=== PATIENT | female | born 1955 | race Caucasian/White ===

== ENCOUNTER → 2018-12-25 11:59 | Outpatient (CLI) | payer OTHER, SELFPAY ==
--- NOTE | 2018-12-25 | DI.MG.S_ITS ---
BILATERAL DIGITAL SCREENING MAMMOGRAM 3D/2D WITH CAD: 12/25/2018 CLINICAL: Routine screening. Family history of breast cancer. Comparison is made to exams dated: 11/23/2017 mammogram, 10/03/2016 mammogram - [facility], and 06/22/2015 mammogram - [facility]. There are scattered fibroglandular elements in both breasts. Current study was also evaluated with a Computer Aided Detection (CAD) system. There is a benign biopsy clip in the right breast. No significant masses, calcifications, or other findings are seen in either breast. There has been no significant interval change. IMPRESSION: NEGATIVE There is no mammographic evidence of malignancy. A 1 year screening mammogram is recommended. This exam was interpreted at Station ID: [id number]. NOTE: For mammograms, a report in lay terms will be sent to the patient. Approximately 15% of breast malignancies will not be visualized mammographically. In the management of a palpable breast mass, a negative mammogram must not discourage biopsy of a clinically suspicious lesion. Electronically Signed By: Lauro [email or web address]/yolande:12/25/2018 18:25:23 letter sent: Normal Exam ACR BI-RADS Category 1: Negative 3341F
== END ==
PROVIDERS: PCP Internal Medicine; Visit Provider Internal Medicine
DX: Z12.31 Encounter for screening mammogram for malignant neoplasm of breast (principal); Z80.3 Family history of malignant neoplasm of breast
CPT/HCPCS: 77063; 77067

== ENCOUNTER → 2020-03-18 16:35 | Outpatient (CLI) | payer MEDICARE, SELFPAY ==
--- NOTE | 2020-03-18 | DI.MG.S_ITS ---
BILATERAL DIGITAL SCREENING MAMMOGRAM 3D/2D WITH CAD: 03/18/2020 CLINICAL: Routine screening. Family history of breast cancer. Comparison is made to exams dated: 12/25/2018 mammogram, 11/23/2017 mammogram, and 10/03/2016 mammogram - [facility]. There are scattered fibroglandular elements in both breasts. Current study was also evaluated with a Computer Aided Detection (CAD) system. There is a biopsy clip in the right breast. No significant masses, calcifications, or other findings are seen in either breast. There has been no significant interval change. IMPRESSION: NEGATIVE There is no mammographic evidence of malignancy. A 1 year screening mammogram is recommended. This exam was interpreted at Station ID: [id number]. NOTE: For mammograms, a report in lay terms will be sent to the patient. Approximately 15% of breast malignancies will not be visualized mammographically. In the management of a palpable breast mass, a negative mammogram must not discourage biopsy of a clinically suspicious lesion. Electronically Signed By: Jordy randall/yolande:03/18/2020 17:43:15 letter sent: Normal Exam ACR BI-RADS Category 1: Negative 3341F
== END ==
PROVIDERS: PCP Internal Medicine; Referring Provider Internal Medicine; Visit Provider Internal Medicine
DX: Z12.31 Encounter for screening mammogram for malignant neoplasm of breast (principal); Z80.3 Family history of malignant neoplasm of breast
CPT/HCPCS: 77063; 77067

== ENCOUNTER 2021-06-21 16:27 | Inpatient (IN) | payer MEDICARE, BC, SELFPAY ==
[2021-06-21] VITALS (18 sets, daily range): BP systolic 93–133; BP diastolic 56–74; PULSE 57–86; RESP 14–24; TEMP 36.6–37.2; O2SAT 97–100; BMI 18.8
--- NOTE | 2021-06-21 16:43 | DI.RAD.S_ITS ---
PROCEDURE: XR CHEST 2V INDICATIONS: shortness of breath TECHNIQUE: 2 views of the chest were acquired. COMPARISON: None. FINDINGS: Surgical changes and devices: None. Lungs and pleura: Lungs are clear. No pleural effusions or pneumothorax. Mediastinum: Mediastinal contours are normal. Heart size is normal. Bones and chest wall: No suspicious bony abnormalities. Soft tissues appear unremarkable. IMPRESSION: No acute cardiopulmonary disease process. Dictated by: Sybil Gallo MD, PhD on 06/21/2021 at 16:07 Approved by: Sybil Gallo MD, PhD on 06/21/2021 at 16:07
[2021-06-21 17:01] LABS: Alanine Aminotransferase 27 IU/L (<35); Albumin 4.8 g/dL (3.5-5.0); Albumin Globulin Ratio 1.7 (1.0-2.8); Alkaline Phosphatase 44 U/L (38-126); Aspartate Aminotransferase 43 IU/L (14-36); BUN Creatinine Ratio 25.5 (6-22); Bilirubin Total 0.8 mg/dL (0.2-1.3); Blood Urea Nitrogen 14 mg/dL (7-17); Calcium 9.8 mg/dL (8.4-10.2); Carbon Dioxide 25 mmol/L (22-32); Chloride 102 mmol/L (98-107); Estimated Glomerular Filt Rate > 60.0 mL/min (>60); Globulin 2.8 g/dL (1.7-4.1); Glucose 107 mg/dL (80-110); Lactate (Lactic Acid) 0.9 mmol/L (0.7-2.1); Sodium 135 mmol/L (137-145); Total Protein 7.6 g/dL (6.3-8.2)
[2021-06-21 17:10] LABS: NT-proBNP (BNP-Adult 18+) 2380 pg/mL (<125)
[2021-06-21 17:14] LABS: Add Manual Diff / Slide Review NO; Basophils Absolute Auto 100 /uL (0-100); Basophils Percent Auto 0.9 % (0-2); Eosinophils Absolute Auto 300 /uL (0-450); Eosinophils Percent Auto 4.4 % (2-4); Hematocrit 38.6 % (36-46); Lymphocytes Absolute Auto 1600 /uL (1100-4500); Mean Corpuscular HGB Conc 33.8 % (30-36); Mean Corpuscular Hemoglobin 31.5 PG (26-34); Mean Corpuscular Volume 93.2 fL (80-100); Monocytes Absolute Auto 600 /uL (0-900); Monocytes Percent Auto 8.7 % (3-14); Neutrophils Absolute Auto 4100 /uL (1500-7000); Platelet Count 258 X10^3/uL (150-400); Red Blood Cell Count 4.14 X10^6/uL (4.0-5.2); Red Cell Distribution Width 13.4 % (11.6-14.8); White Blood Cell Count 6.6 X10^3/uL (4.5-11.0)
[2021-06-21 17:19] LABS: HEMOLYSIS 114 (0-50)
[2021-06-21 17:20] LABS: Potassium 4.1 mmol/L (3.4-5.1)
[2021-06-21 17:24] LABS: COVID19 -Nasal RAPID Negative (Negative)
[2021-06-21 18:45] LABS: D Dimer < 200 ng/mL (<230)
[2021-06-21] MEDS: ASPIRIN 325 MG TABLET PO (18:45)
--- NOTE | 2021-06-21 18:46 | ED.SOB ---
HPI - SOB/Dyspnea <Temo Kurtz PA-C - Last Filed: 06/21/21 20:26> General Chief Complaint: Shortness of Breath/Dyspnea Stated Complaint: shortness of breath Time Seen by Provider: 06/21/21 16:47 Source: patient Mode of arrival: Ambulatory Limitations: no limitations History of Present Illness HPI Narrative: 66-year-old female with no reported past medical history presents to the ED with worsening shortness of breath for the last 4 days. Patient states that she has been feeling progressively short of breath for the last 2 years, has lost about 20 lb unintentionally over the last 2 years. Patient states that 4 days ago, she was dancing with her friend, after which she felt extremely short of breath, had more intermittent episodes of shortness of breath over the last 3 days. Patient also endorses nausea and shaky limbs. Patient denies fevers, chills, chest pain, cough, vomiting, abdominal pain, dysuria, lightheadedness, dizziness, syncope. Patient denies any leg swelling, prior history of DVTs or PE. Patient is a current smoker. Related Data Home Medications Medication Instructions Recorded Confirmed duloxetine 60 mg capsule,delayed 60 mg PO DAILY 06/21/21 06/21/21 release (Cymbalta) Allergies Allergy/AdvReac Type Severity Reaction Status Date / Time No Known Drug Allergies Allergy Verified 06/21/21 16:43 Review of Systems <Temo Kurtz PA-C - Last Filed: 06/21/21 20:26> Constitutional Constitutional: Denies chills, Reports fatigue, Denies fever(s), Denies frequent falls, Denies lethargy, Reports malaise and Denies weakness Eyes Eyes: Denies change in vision, Denies eye discharge, Denies irritation and Denies loss of vision ENT Ears, Nose, Mouth, and Throat: Denies change in voice, Denies dizziness, Denies neck pain, Denies sore throat and Denies throat swelling Cardiovascular Cardiovascular: Denies chest pain, Denies irregular heart rhythm, Denies lightheadedness, Denies palpitations, Reports dyspnea, Reports dyspnea on exertion and Denies orthopnea Respiratory Respiratory: Denies cough, Reports dyspnea, Reports dyspnea on exertion and Denies wheezing Gastrointestinal Gastrointestinal: Denies abdominal pain, Denies change in bowel habits, Denies diarrhea, Reports nausea and Denies vomiting Musculoskeletal Musculoskeletal: Denies neck pain and Denies numbness Integumentary/Breasts Skin/Breast: Denies pruritus, Denies erythema, Denies rash and Denies wounds Neurologic Neurologic: Denies behavioral changes, Denies confusion, Denies dizziness, Denies frequent falls, Denies loss of vision, Denies numbness and Denies weakness Psychiatric Psychiatric: Denies anxiety, Denies behavioral changes, Denies confusion, Denies depression, Denies homicidal ideation and Denies suicidal ideation Endocrine Endocrine: Reports fatigue, Denies flushing and Denies palpitations Hematologic/Lymphatic Hematologic/Lymphatic: Denies easy bruising Allergic/Immunologic Allergic/Immunologic: Denies urticaria, Denies throat swelling and Denies wheezing Patient History <Temo Kurtz PA-C - Last Filed: 06/21/21 20:26> Social History Smoking Status: Current some day smoker Smoking Status: Current some day smoker alcohol intake frequency: 0-2 drinks per day Substance Use Type: does not use Exam <Temo Kurtz PA-C - Last Filed: 06/21/21 20:26> Initial Vital Signs Initial Vital Signs: Vital Signs Temperature 99 F 06/21/21 16:38 Pulse Rate 84 06/21/21 16:38 Respiratory Rate 21 06/21/21 16:38 Blood Pressure 133/71 06/21/21 16:38 Pulse Oximetry 100 06/21/21 16:38 Const General: cooperative HENMT Head: normocephalic and atraumatic Ears: external ears normal and TM's normal bilaterally Nose: external nose normal and No nasal discharge Face and sinus: sinuses nontender, face symmetric, no sinus tenderness and No dry mucous membranes Mouth: oral mucosae normal and moist mucous membranes Teeth and gingiva: dentition normal Throat: tonsils normal and uvula midline Eyes General: appearance normal, both eyes and all related structures Eyelids: eyelids normal Conjunctivae: conjunctivae normal Sclera: sclerae normal Pupils: PERRL EOM: EOM intact bilaterally Neck Neck: normal visual inspection, trachea midline, No lymphadenopathy, No midline deformity and No JVD Lymphatic: No lymphedema Chest Chest: normal inspection of the chest Resp Effort & Inspection: normal respiratory effort, able to speak in complete sentences, no respiratory distress and no use of accessory muscles Auscultation: clear to auscultation bilaterally, no rales, no rhonchi and no wheezes Cardio Rate: regular rate Rhythm: regular rhythm Heart Sounds: no click, no gallops, no murmurs and no rubs Pulses: normal peripheral pulses GI Inspection: non-distended Palpation: soft, no hepatosplenomegaly, No guarding, No pulsatile mass and No tender Auscultation: normal bowel sounds Back/Spine/Pelvis Back: No CVA tenderness Cervical Spine: cervical ROM normal and No pain with cervical ROM Thoracic/Lumbar Spine: thoracic and lumbar spine normal to inspection Skin General: no rashes or lesions noted, No jaundice and No petechiae Neuro General: patient alert, patient oriented x3, gait normal and no focal motor deficits Speech: speech normal Extrem General: full ROM, no clubbing, cyanosis or edema, no pedal edema and no calf tenderness Other: No leg swelling, erythema, tenderness to palpation Psych Appearance: well kempt Mental Status: mental status grossly normal Attitude: cooperative Thought Content: normal and suicidality Judgment: judgment good <Keli Cardoso MD - Last Filed: 06/21/21 22:42> Initial Vital Signs Initial Vital Signs: Vital Signs Temperature 99 F 06/21/21 16:38 Pulse Rate 84 06/21/21 16:38 Respiratory Rate 21 06/21/21 16:38 Blood Pressure 133/71 06/21/21 16:38 Pulse Oximetry 100 06/21/21 16:38 Course <Temo Kurtz PA-C - Last Filed: 06/21/21 20:26> Course Course Narrative: EKG with acute changes. Troponin of 0.690, BNP 2380. Labs otherwise unremarkable. Cardiology consult with Dr. Davis, she recommends aspirin 325, heparin drip, metoprolol 25 mg, transfer to a facility for a cardiac catheterization. Patient given aspirin 325, metoprolol 25 mg, heparin drip, Lasix 40 mg IV. Repeat EKG unchanged. Repeat troponin 0.630. Patient is awaiting acceptance to a facility with cardiac catheterization lab. Patient is currently wait listed at [facility]. [facility] transfer center called to obtain patient information, and notified that their Cardiology Department will call us back, ETA unknown. Orders Ordered: ED Orders 06/21/21 16:37 Complete Blood Count AUTO DIFF Stat Comprehensive Metabolic Panel Stat Lactate (Lactic Acid) Stat NT-proBNP (BNP-Adult 18+) Stat Troponin I Stat 06/21/21 16:43 XR chest 2V Stat EKG-12 Lead Stat Measure peak expiratory flow ONCE RT Consult Eval and Treat Now 06/21/21 16:45 COVID19 -Nasal swab/Pre-Proc Stat 06/21/21 18:22 D Dimer Stat PTT [Partial Thromboplastin Time] Stat Thyroid Stimulating Hormone Stat 06/21/21 19:30 Troponin I Stat 06/21/21 19:31 EKG-12 Lead Stat 06/22/21 02:00 PTT [Partial Thromboplastin Time] Stat Heparin Sodium/Dextrose (Heparin Drip) 25,000 unit in 500 mls @ 10.886 mls/hr IV CONT ANDREW; Protocol Last Admin: 06/21/21 19:46 Dose: 11.91 units/kg/hr, 10.8 mls/hr Documented by: MARVIN Discontinued Medications Aspirin (Aspirin 325 Mg Tablet) 325 mg PO NOW ONE Stop: 06/21/21 18:37 Last Admin: 06/21/21 18:45 Dose: 325 mg Documented by: FRENCH Furosemide (Furosemide 40 Mg/4 Ml Vial) 40 mg IV NOW ONE Stop: 06/21/21 19:24 Last Admin: 06/21/21 19:46 Dose: 40 mg Documented by: MARVIN Heparin Sodium (Porcine) (Heparin 5,000 Unit/Ml Vial) 5,000 unit IV NOW ONE Stop: 06/21/21 19:24 Last Admin: 06/21/21 19:36 Dose: Not Given Documented by: MARVIN Heparin Sodium (Porcine) (Heparin 5,000 Unit/Ml Vial) 4,000 unit IV NOW ONE Stop: 06/21/21 19:35 Last Admin: 06/21/21 19:46 Dose: 4,000 unit Documented by: MARVIN Heparin Sodium/Dextrose (Heparin Drip) 25,000 unit in 500 mls @ 20 mls/hr IV CONT ANDREW; Protocol Last Admin: 06/21/21 19:36 Dose: Not Given Documented by: MARVIN Metoprolol Succinate (Metoprolol Er 25 Mg Tablet) 25 mg PO NOW ONE Stop: 06/21/21 19:50 Last Admin: 06/21/21 20:36 Dose: 25 mg Documented by: MARVIN Vital Signs Vital signs: Vital Signs - 8 hr 06/21/21 16:38 06/21/21 17:00 06/21/21 17:30 Temperature 99 F Pulse Rate 86 79 79 Respiratory Rate 18 23 Blood Pressure 133/71 Pulse Oximetry 100 99 100 06/21/21 18:00 06/21/21 19:10 06/21/21 19:30 Temperature Pulse Rate 82 73 70 Respiratory Rate 24 Blood Pressure 112/68 121/65 Pulse Oximetry 100 99 100 06/21/21 20:00 06/21/21 20:15 06/21/21 20:30 Temperature Pulse Rate 69 72 70 Respiratory Rate Blood Pressure 111/62 130/74 117/69 Pulse Oximetry 100 100 100 06/21/21 20:36 06/21/21 20:42 06/21/21 21:00 Temperature Pulse Rate 72 70 66 Respiratory Rate 14 21 Blood Pressure 130/74 130/63 107/66 Pulse Oximetry 99 06/21/21 21:25 06/21/21 21:30 Temperature Pulse Rate 69 67 Respiratory Rate 22 Blood Pressure 118/69 120/66 Pulse Oximetry 97 <Keli Cardoso MD - Last Filed: 06/21/21 22:42> Course Course Narrative: EKG with acute changes. Troponin of 0.690, BNP 2380. Labs otherwise unremarkable. Cardiology consult with Dr. Davis, she recommends aspirin 325, heparin drip, metoprolol 25 mg, transfer to a facility for a cardiac catheterization. Patient given aspirin 325, metoprolol 25 mg, heparin drip, Lasix 40 mg IV. Repeat EKG unchanged. Repeat troponin 0.630. Patient is awaiting acceptance to a facility with cardiac catheterization lab. Patient is currently wait listed at [facility]. [facility] transfer center called to obtain patient information, and notified that their Cardiology Department will call us back, ETA unknown. 830pm spoke with delineator at the [facility], Dr [address]. Excepted patient information however beds are not available. Review bed status with a local hospitals, [facility], [facility]and [facility] are all so full they won't even place her on a wait list. Extensive wait list at [facility] in [place] (maybe tomorrow afternoon) and [facility] in [place] (tomorrow am may be possible after discharges), [facility] (nothing tonight, ED boarding, can call tomorrow, but doubtful) Will contact [facility] Patient is examined independently, chart is reviewed. Care is assumed. She is informed of bed search that continues and is currently stable in the emergency department. Given extensive timeline for transfer, will consider admission here for contiued care until beds are available. 915: no capaicty at [facility] may have capacity. Dr Gerard, hospitalist from [facility], no bed capacity tonight. 10:30 pm care is reviewed with the hospitalist service. Will be admitted overnight for continue heparin drip, serial enzymes, echocardiogram in the morning with anticipation of discharge when bed available with likely need for heart catheterization setting of new congestive heart failure and non STEMI. Orders Ordered: ED Orders 06/21/21 16:37 Complete Blood Count AUTO DIFF Stat Comprehensive Metabolic Panel Stat Lactate (Lactic Acid) Stat NT-proBNP (BNP-Adult 18+) Stat Troponin I Stat 06/21/21 16:43 XR chest 2V Stat EKG-12 Lead Stat Measure peak expiratory flow ONCE RT Consult Eval and Treat Now 06/21/21 16:45 COVID19 -Nasal swab/Pre-Proc Stat 06/21/21 18:22 D Dimer Stat PTT [Partial Thromboplastin Time] Stat Thyroid Stimulating Hormone Stat 06/21/21 19:30 Troponin I Stat 06/21/21 19:31 EKG-12 Lead Stat 06/22/21 02:00 PTT [Partial Thromboplastin Time] Stat Heparin Sodium/Dextrose (Heparin Drip) 25,000 unit in 500 mls @ 10.886 mls/hr IV CONT ANDREW; Protocol Last Admin: 06/21/21 19:46 Dose: 11.91 units/kg/hr, 10.8 mls/hr Documented by: MARVIN Discontinued Medications Aspirin (Aspirin 325 Mg Tablet) 325 mg PO NOW ONE Stop: 06/21/21 18:37 Last Admin: 06/21/21 18:45 Dose: 325 mg Documented by: NOEMYOTEM Furosemide (Furosemide 40 Mg/4 Ml Vial) 40 mg IV NOW ONE Stop: 06/21/21 19:24 Last Admin: 06/21/21 19:46 Dose: 40 mg Documented by: MARVIN Heparin Sodium (Porcine) (Heparin 5,000 Unit/Ml Vial) 5,000 unit IV NOW ONE Stop: 06/21/21 19:24 Last Admin: 06/21/21 19:36 Dose: Not Given Documented by: MARVIN Heparin Sodium (Porcine) (Heparin 5,000 Unit/Ml Vial) 4,000 unit IV NOW ONE Stop: 06/21/21 19:35 Last Admin: 06/21/21 19:46 Dose: 4,000 unit Documented by: MARVIN Heparin Sodium/Dextrose (Heparin Drip) 25,000 unit in 500 mls @ 20 mls/hr IV CONT ANDREW; Protocol Last Admin: 06/21/21 19:36 Dose: Not Given Documented by: MARVIN Metoprolol Succinate (Metoprolol Er 25 Mg Tablet) 25 mg PO NOW ONE Stop: 06/21/21 19:50 Last Admin: 06/21/21 20:36 Dose: 25 mg Documented by: MARVIN Vital Signs Vital signs: Vital Signs - 8 hr 06/21/21 16:38 06/21/21 17:00 06/21/21 17:30 Temperature 99 F Pulse Rate 86 79 79 Respiratory Rate 18 23 Blood Pressure 133/71 Pulse Oximetry 100 99 100 06/21/21 18:00 06/21/21 19:10 06/21/21 19:30 Temperature Pulse Rate 82 73 70 Respiratory Rate 24 Blood Pressure 112/68 121/65 Pulse Oximetry 100 99 100 06/21/21 20:00 06/21/21 20:15 06/21/21 20:30 Temperature Pulse Rate 69 72 70 Respiratory Rate Blood Pressure 111/62 130/74 117/69 Pulse Oximetry 100 100 100 06/21/21 20:36 06/21/21 20:42 06/21/21 21:00 Temperature Pulse Rate 72 70 66 Respiratory Rate 14 21 Blood Pressure 130/74 130/63 107/66 Pulse Oximetry 99 06/21/21 21:25 06/21/21 21:30 Temperature Pulse Rate 69 67 Respiratory Rate 22 Blood Pressure 118/69 120/66 Pulse Oximetry 97 MDM - SOB/Dyspnea <Temo Kurtz PA-C - Last Filed: 06/21/21 20:26> Medical Records Attestation: I reviewed the patient's medical records. Lab Data Attestation: I reviewed the patient's lab results. Lab results narrative: Elevated tropes 0.690. Elevated NT pro BNP 2380 Result diagrams: 06/21/21 16:37 06/21/21 16:37 Labs: Lab Results 06/21/21 06/21/21 06/21/21 Range/Units 16:37 16:37 16:37 WBC 6.6 (4.5-11.0) X10^3/uL RBC 4.14 (4.0-5.2) X10^6/uL Hgb 13.0 (12.0-16.0) g/dL Hct 38.6 (36-46) % MCV 93.2 (80-100) fL MCH 31.5 (26-34) PG MCHC 33.8 (30-36) % RDW 13.4 (11.6-14.8) % Plt Count 258 (150-400) X10^3/uL Neut % (Auto) 62.0 (50-75) % Lymph % (Auto) 24.0 L (25-40) % Stephenson % (Auto) 8.7 (3-14) % Eos % (Auto) 4.4 H (2-4) % Baso % (Auto) 0.9 (0-2) % Neut # (Auto) 4100 (4172-7846) /uL Lymph # (Auto) 1600 (7507-4056) /uL Stephenson # (Auto) 600 (0-900) /uL Eos # (Auto) 300 (0-450) /uL Baso # (Auto) 100 (0-100) /uL APTT (26.4-36.2) SECONDS D-Dimer (<230) ng/mL Sodium 135 L (137-145) mmol/L Potassium 4.1 (3.4-5.1) mmol/L Chloride 102 (98-107) mmol/L Carbon Dioxide 25 (22-32) mmol/L BUN 14 (7-17) mg/dL Creatinine 0.55 (0.52-1.04) mg/dL Estimated GFR > 60.0 (>60) mL/min BUN/Creatinine Ratio 25.5 H (6-22) Glucose 107 (80-110) mg/dL Lactate 0.9 (0.7-2.1) mmol/L Calcium 9.8 (8.4-10.2) mg/dL Total Bilirubin 0.8 (0.2-1.3) mg/dL AST 43 H (14-36) IU/L ALT 27 (<35) IU/L Alkaline Phosphatase 44 (38-126) U/L Troponin I (0.01-0.034) ng/mL NT-Pro-B Natriuret Pep 2380 H (<125) pg/mL Total Protein 7.6 (6.3-8.2) g/dL Albumin 4.8 (3.5-5.0) g/dL Globulin 2.8 (1.7-4.1) g/dL Albumin/Globulin Ratio 1.7 (1.0-2.8) TSH (0.47-4.68) uIU/mL SARS-CoV-2 (PCR) (Negative) 06/21/21 06/21/21 06/21/21 Range/Units 16:37 16:45 18:22 WBC (4.5-11.0) X10^3/uL RBC (4.0-5.2) X10^6/uL Hgb (12.0-16.0) g/dL Hct (36-46) % MCV (80-100) fL MCH (26-34) PG MCHC (30-36) % RDW (11.6-14.8) % Plt Count (150-400) X10^3/uL Neut % (Auto) (50-75) % Lymph % (Auto) (25-40) % Stephenson % (Auto) (3-14) % Eos % (Auto) (2-4) % Baso % (Auto) (0-2) % Neut # (Auto) (6558-2816) /uL Lymph # (Auto) (3687-8440) /uL Stephenson # (Auto) (0-900) /uL Eos # (Auto) (0-450) /uL Baso # (Auto) (0-100) /uL APTT (26.4-36.2) SECONDS D-Dimer < 200 (<230) ng/mL Sodium (137-145) mmol/L Potassium (3.4-5.1) mmol/L Chloride (98-107) mmol/L Carbon Dioxide (22-32) mmol/L BUN (7-17) mg/dL Creatinine (0.52-1.04) mg/dL Estimated GFR (>60) mL/min BUN/Creatinine Ratio (6-22) Glucose (80-110) mg/dL Lactate (0.7-2.1) mmol/L Calcium (8.4-10.2) mg/dL Total Bilirubin (0.2-1.3) mg/dL AST (14-36) IU/L ALT (<35) IU/L Alkaline Phosphatase (38-126) U/L Troponin I 0.690 H* (0.01-0.034) ng/mL NT-Pro-B Natriuret Pep (<125) pg/mL Total Protein (6.3-8.2) g/dL Albumin (3.5-5.0) g/dL Globulin (1.7-4.1) g/dL Albumin/Globulin Ratio (1.0-2.8) TSH (0.47-4.68) uIU/mL SARS-CoV-2 (PCR) Negative (Negative) 06/21/21 06/21/21 06/21/21 Range/Units 18:22 18:22 19:30 WBC (4.5-11.0) X10^3/uL RBC (4.0-5.2) X10^6/uL Hgb (12.0-16.0) g/dL Hct (36-46) % MCV (80-100) fL MCH (26-34) PG MCHC (30-36) % RDW (11.6-14.8) % Plt Count (150-400) X10^3/uL Neut % (Auto) (50-75) % Lymph % (Auto) (25-40) % Stephenson % (Auto) (3-14) % Eos % (Auto) (2-4) % Baso % (Auto) (0-2) % Neut # (Auto) (0085-2692) /uL Lymph # (Auto) (4905-1464) /uL Stephenson # (Auto) (0-900) /uL Eos # (Auto) (0-450) /uL Baso # (Auto) (0-100) /uL APTT 31 (26.4-36.2) SECONDS D-Dimer (<230) ng/mL Sodium (137-145) mmol/L Potassium (3.4-5.1) mmol/L Chloride (98-107) mmol/L Carbon Dioxide (22-32) mmol/L BUN (7-17) mg/dL Creatinine (0.52-1.04) mg/dL Estimated GFR (>60) mL/min BUN/Creatinine Ratio (6-22) Glucose (80-110) mg/dL Lactate (0.7-2.1) mmol/L Calcium (8.4-10.2) mg/dL Total Bilirubin (0.2-1.3) mg/dL AST (14-36) IU/L ALT (<35) IU/L Alkaline Phosphatase (38-126) U/L Troponin I 0.630 H* (0.01-0.034) ng/mL NT-Pro-B Natriuret Pep (<125) pg/mL Total Protein (6.3-8.2) g/dL Albumin (3.5-5.0) g/dL Globulin (1.7-4.1) g/dL Albumin/Globulin Ratio (1.0-2.8) TSH 2.63 (0.47-4.68) uIU/mL SARS-CoV-2 (PCR) (Negative) Imaging Data Chest x-ray: Radiologist's Impression: PROCEDURE:? XR CHEST 2V ? INDICATIONS:? shortness of breath ? TECHNIQUE:? 2 views of the chest were acquired.? ? COMPARISON:? None. ? FINDINGS:? ? Surgical changes and devices:? None.? ? Lungs and pleura:? Lungs are clear.? No pleural effusions or pneumothorax.? ? Mediastinum:? Mediastinal contours are normal.? Heart size is normal.? ? Bones and chest wall:? No suspicious bony abnormalities.? Soft tissues appear unremarkable.? ? IMPRESSION:? No acute cardiopulmonary disease process. ? Dictated by: Sybil Gallo MD, PhD on 06/21/2021 at 16:07 ? ? Approved by: Sybil Gallo MD, PhD on 06/21/2021 at 16:07 ? ECG Data Interpretation: Normal sinus rhythm. No acute ST-T changes. No axis deviation. MDM Narrative Medical decision making narrative: 66-year-old female with no reported past medical history presents to the ED with worsening shortness of breath for the last 4 days. Concern for ACS versus CHF versus PE versus pneumonia versus COVID infection versus thyroid E range Will order labs, troponin, EKG, chest x-ray, D-dimer, TSH, coags, COVID swab. Will reassess. <Keli Cardoso MD - Last Filed: 06/21/21 22:42> Lab Data Labs: Lab Results 06/21/21 06/21/21 06/21/21 Range/Units 16:37 16:37 16:37 WBC 6.6 (4.5-11.0) X10^3/uL RBC 4.14 (4.0-5.2) X10^6/uL Hgb 13.0 (12.0-16.0) g/dL Hct 38.6 (36-46) % MCV 93.2 (80-100) fL MCH 31.5 (26-34) PG MCHC 33.8 (30-36) % RDW 13.4 (11.6-14.8) % Plt Count 258 (150-400) X10^3/uL Neut % (Auto) 62.0 (50-75) % Lymph % (Auto) 24.0 L (25-40) % Stephenson % (Auto) 8.7 (3-14) % Eos % (Auto) 4.4 H (2-4) % Baso % (Auto) 0.9 (0-2) % Neut # (Auto) 4100 (2847-0889) /uL Lymph # (Auto) 1600 (7093-8867) /uL Stephenson # (Auto) 600 (0-900) /uL Eos # (Auto) 300 (0-450) /uL Baso # (Auto) 100 (0-100) /uL APTT (26.4-36.2) SECONDS D-Dimer (<230) ng/mL Sodium 135 L (137-145) mmol/L Potassium 4.1 (3.4-5.1) mmol/L Chloride 102 (98-107) mmol/L Carbon Dioxide 25 (22-32) mmol/L BUN 14 (7-17) mg/dL Creatinine 0.55 (0.52-1.04) mg/dL Estimated GFR > 60.0 (>60) mL/min BUN/Creatinine Ratio 25.5 H (6-22) Glucose 107 (80-110) mg/dL Lactate 0.9 (0.7-2.1) mmol/L Calcium 9.8 (8.4-10.2) mg/dL Total Bilirubin 0.8 (0.2-1.3) mg/dL AST 43 H (14-36) IU/L ALT 27 (<35) IU/L Alkaline Phosphatase 44 (38-126) U/L Troponin I (0.01-0.034) ng/mL NT-Pro-B Natriuret Pep 2380 H (<125) pg/mL Total Protein 7.6 (6.3-8.2) g/dL Albumin 4.8 (3.5-5.0) g/dL Globulin 2.8 (1.7-4.1) g/dL Albumin/Globulin Ratio 1.7 (1.0-2.8) TSH (0.47-4.68) uIU/mL SARS-CoV-2 (PCR) (Negative) 06/21/21 06/21/21 06/21/21 Range/Units 16:37 16:45 18:22 WBC (4.5-11.0) X10^3/uL RBC (4.0-5.2) X10^6/uL Hgb (12.0-16.0) g/dL Hct (36-46) % MCV (80-100) fL MCH (26-34) PG MCHC (30-36) % RDW (11.6-14.8) % Plt Count (150-400) X10^3/uL Neut % (Auto) (50-75) % Lymph % (Auto) (25-40) % Stephenson % (Auto) (3-14) % Eos % (Auto) (2-4) % Baso % (Auto) (0-2) % Neut # (Auto) (7273-8405) /uL Lymph # (Auto) (8053-2314) /uL Stephenson # (Auto) (0-900) /uL Eos # (Auto) (0-450) /uL Baso # (Auto) (0-100) /uL APTT (26.4-36.2) SECONDS D-Dimer < 200 (<230) ng/mL Sodium (137-145) mmol/L Potassium (3.4-5.1) mmol/L Chloride (98-107) mmol/L Carbon Dioxide (22-32) mmol/L BUN (7-17) mg/dL Creatinine (0.52-1.04) mg/dL Estimated GFR (>60) mL/min BUN/Creatinine Ratio (6-22) Glucose (80-110) mg/dL Lactate (0.7-2.1) mmol/L Calcium (8.4-10.2) mg/dL Total Bilirubin (0.2-1.3) mg/dL AST (14-36) IU/L ALT (<35) IU/L Alkaline Phosphatase (38-126) U/L Troponin I 0.690 H* (0.01-0.034) ng/mL NT-Pro-B Natriuret Pep (<125) pg/mL Total Protein (6.3-8.2) g/dL Albumin (3.5-5.0) g/dL Globulin (1.7-4.1) g/dL Albumin/Globulin Ratio (1.0-2.8) TSH (0.47-4.68) uIU/mL SARS-CoV-2 (PCR) Negative (Negative) 06/21/21 06/21/21 06/21/21 Range/Units 18:22 18:22 19:30 WBC (4.5-11.0) X10^3/uL RBC (4.0-5.2) X10^6/uL Hgb (12.0-16.0) g/dL Hct (36-46) % MCV (80-100) fL MCH (26-34) PG MCHC (30-36) % RDW (11.6-14.8) % Plt Count (150-400) X10^3/uL Neut % (Auto) (50-75) % Lymph % (Auto) (25-40) % Stephenson % (Auto) (3-14) % Eos % (Auto) (2-4) % Baso % (Auto) (0-2) % Neut # (Auto) (4041-8891) /uL Lymph # (Auto) (9314-3647) /uL Stephenson # (Auto) (0-900) /uL Eos # (Auto) (0-450) /uL Baso # (Auto) (0-100) /uL APTT 31 (26.4-36.2) SECONDS D-Dimer (<230) ng/mL Sodium (137-145) mmol/L Potassium (3.4-5.1) mmol/L Chloride (98-107) mmol/L Carbon Dioxide (22-32) mmol/L BUN (7-17) mg/dL Creatinine (0.52-1.04) mg/dL Estimated GFR (>60) mL/min BUN/Creatinine Ratio (6-22) Glucose (80-110) mg/dL Lactate (0.7-2.1) mmol/L Calcium (8.4-10.2) mg/dL Total Bilirubin (0.2-1.3) mg/dL AST (14-36) IU/L ALT (<35) IU/L Alkaline Phosphatase (38-126) U/L Troponin I 0.630 H* (0.01-0.034) ng/mL NT-Pro-B Natriuret Pep (<125) pg/mL Total Protein (6.3-8.2) g/dL Albumin (3.5-5.0) g/dL Globulin (1.7-4.1) g/dL Albumin/Globulin Ratio (1.0-2.8) TSH 2.63 (0.47-4.68) uIU/mL SARS-CoV-2 (PCR) (Negative) ECG Data Interpretation: 16:40 Normal sinus rhythm. No acute ST-T changes. No axis deviation. 19:30 sinus rhythm at a rate of 67 unchanged from previous EKG. No acute ischemic findings. Discharge Plan Departure Patient Disposition: Admitted As Inpatient Clinical Impression: Non-ST elevation CT (NSTEMI), Acute CHF (congestive heart failure) Admit Date/Time: 06/21/21 22:36 Admit Provider: Mandy Chávez
[2021-06-21 19:22] LABS: Thyroid Stimulating Hormone 2.63 uIU/mL (0.47-4.68)
[2021-06-21 19:36] LABS: PTT Partial Thromboplastin Tim 31 SECONDS (26.4-36.2)
[2021-06-21] MEDS: FUROSEMIDE 40 MG/4 ML VIAL IV (19:46)
[2021-06-21] MEDS: HEPARIN DRIP 25,000 UNIT/500 ML IV.SOLN 10.8 UNIT IV (19:46)
[2021-06-21] MEDS: HEPARIN 5,000 UNIT/ML VIAL 4000 UNIT IV (19:46)
[2021-06-21] MEDS: METOPROLOL ER 25 MG TABLET PO (20:36)
--- NOTE | 2021-06-21 22:30 | PC.NURSE ---
Addendum entered by Deisi Newman CNA 06/21/21 22:44: 06/21/2021 Around 1945 these [facility] beds[facility] Original Note: 06/21/2021 1930 I started searching for tele beds for the pt She is [facility] a [facility] list at: [facility]=(call back 06/22 after 0900 for updates) [facility]=(call back 06/22 after 1200 for updates) [facility]call back 06/22 after 0730) [facility]=(call back 06/22 in AM)
--- NOTE | 2021-06-21 23:11 | PC.NURSE ---
Pt informed that she is admitted to [facility] and will be in room 212. Pt says she will update via phone/or text.
[2021-06-22] VITALS (8 sets, daily range): BP systolic 90–103; BP diastolic 38–52; PULSE 52–78; RESP 16–17; TEMP 36.4–37.7; O2SAT 96–100
[2021-06-22 00:22] LABS: COVID19 - ADMIT (NP swab/PCR) Negative (Negative)
[2021-06-22 01:56] LABS: Add Manual Diff / Slide Review NO; Basophils Absolute Auto 0 /uL (0-100); Basophils Percent Auto 0.5 % (0-2); Eosinophils Absolute Auto 300 /uL (0-450); Eosinophils Percent Auto 6.4 % (2-4); Hematocrit 35.4 % (36-46); Hemoglobin 11.8 g/dL (12.0-16.0); Lymphocytes Absolute Auto 2000 /uL (1100-4500); Lymphocytes Percent Auto 38.8 % (25-40); Mean Corpuscular HGB Conc 33.4 % (30-36); Mean Corpuscular Hemoglobin 31.3 PG (26-34); Mean Corpuscular Volume 93.7 fL (80-100); Monocytes Absolute Auto 300 /uL (0-900); Monocytes Percent Auto 6.5 % (3-14); Neutrophils Absolute Auto 2500 /uL (1500-7000); Neutrophils Percent Auto 47.8 % (50-75); Platelet Count 224 X10^3/uL (150-400); Red Blood Cell Count 3.77 X10^6/uL (4.0-5.2); Red Cell Distribution Width 12.9 % (11.6-14.8); White Blood Cell Count 5.3 X10^3/uL (4.5-11.0)
--- NOTE | 2021-06-22 02:06 | P.HP_ITS ---
History of Present Illness History of Present Illness Date Patient Seen: 06/22/21 Time Patient Seen: 01:30 Chief complaint: shortness of breath Narrative: Anyi Aggarwal is a 66 year old female from [place] on [facility] who presented to the emergency department for generalized shortness of breath she has had for quite a while but worsened over the past day. She does not take any medications and had been being seen by a pecan grower for osteoarthritis. The patient is a retired teacher and professional dancer and was dancing when she sat down for a break and was unable to get up and participate in what would have normally been a normal activity for her, she also states that during that time she became a little bit nauseous but did not vomit. She denies any chest pain, she did state a couple of weeks ago she had pain in her left side of her face that started out as a headache and then migrated to her left jaw. She states that she has been under a lot of stress and thought it was due to grinding her teeth and pretty much ignored. That pain seems to have largely resolved. She states now she gets short of breath when walking up a hill bending over and she is unable to catch her breath. She denies any congestion except that when she has been crying, she does have right leg muscle pain and left shoulder pain that she states is chronic. She also states that her right leg has gotten progressively weaker and is smaller than her left. She denies any changes in her upper extremities. She denies fevers, sweats, or chills, chest pain, cough, vomiting, abdominal pain, dysuria, lightheadedness, dizziness, syncope.? Patient denies any leg swelling, prior history of DVTs or PE.? Patient is a current smoker. In the process of assessing her in the emergency department they domenico up troponin and it was initially elevated at 0.690 then dropped to 0.0630 and the 3rd one is 0.565. EKG per ED provider indicated acute changes with a normal s inus rhythm. Chest x-ray is negative for any acute process. Patient is afebrile, blood pressure 93/56, heart rate 59, respiratory rate 17, oxygen saturation of 99% on room air, she weighs 45.3 kilos with a BMI of 18.8. She is mildly anemic with the hemoglobin of 11.8 and hematocrit of 35.4, rest of CBC is unremarkable sodium 135, glucose 140, A1c is pending, troponin was 0.565, proBNP is 2,380, lipid panel is pending, TSH 2.63, and COVID-19 PCR is negative. Patient History Medical History Osteoarthritis (arthritis due to wear and tear of joints) Family & Social History Family History (Updated 06/22/21 @ 02:22 by JEREMY Song) Mother Dementia Father Diabetes mellitus Sister Breast cancer Other Hypertension Social History: household members spouse,family Prior Living Arrangements House Safety & Behavioral: Feels Safe in Current Yes Environment Been Physically Hurt or No Threatened By a Person Suicidal Ideation Description None Suicide Plan Description No Plan Tobacco & Substance use: Tobacco type cigarettes Smoking Status Current some day smoker Smoking packs per day 0.33 alcohol intake frequency 0-2 drinks per day Substance Use Type does not use Meds Home Medications and Allergies Home Medications Medication Instructions Recorded Confirmed Type duloxetine 60 mg capsule,delayed 60 mg PO DAILY 06/21/21 06/21/21 History release (Cymbalta) Allergies Allergy/AdvReac Type Severity Reaction Status Date / Time No Known Drug Allergies Allergy Verified 06/21/21 16:43 Exam Vital Signs (past 8 hours): - 06/21/21 19:10 06/21/21 19:30 06/21/21 20:00 Temperature Pulse Rate 73 70 69 Respiratory Rate 24 Blood Pressure 112/68 121/65 111/62 Pulse Oximetry 99 100 100 06/21/21 20:15 06/21/21 20:30 06/21/21 20:36 Temperature Pulse Rate 72 70 72 Respiratory Rate Blood Pressure 130/74 117/69 130/74 Pulse Oximetry 100 100 06/21/21 20:42 06/21/21 21:00 06/21/21 21:25 Temperature Pulse Rate 70 66 69 Respiratory Rate 14 21 Blood Pressure 130/63 107/66 118/69 Pulse Oximetry 99 06/21/21 21:30 06/21/21 22:00 06/21/21 22:30 Temperature Pulse Rate 67 60 59 L Respiratory Rate 22 20 23 Blood Pressure 120/66 110/64 104/56 L Pulse Oximetry 97 98 97 06/21/21 23:00 06/21/21 23:35 Temperature 98 F Pulse Rate 57 L 59 L Respiratory Rate 20 17 Blood Pressure 105/56 L 93/56 L Pulse Oximetry 97 99 Oxygen Delivery Method Nasal Cannula Oxygen Flow Rate 0 Narrative Exam Narrative: Gen: Alert, oriented, thin 66 y.o. female, anxious and occasionally tearful HEENT: normocephalic, atraumatic, conjunctiva clear, sclera non-icteric, oral mucosa pink and moist Neck: supple, full ROM, no JVD, trachea is midline Resp: Lungs CTA, non-labored breathing CV: RRR, no murmur or rubs Abd: soft, non-tender, normoactive BTs Skin: no lesions or rashes, dry and intact Neuro: Alert and oriented X 4 w/no focal deficits. Speech clear and coherent. Extremities: moves all 4 extremities, is ambulatory, negative Thee?s sign Psyche: normal mood and affect. Objective Labs Result Diagrams: 06/22/21 01:44 06/22/21 01:44 Labs: Laboratory Results - last 24 hr 06/21/21 06/21/21 06/21/21 16:37 16:37 16:37 WBC 6.6 RBC 4.14 Hgb 13.0 Hct 38.6 MCV 93.2 MCH 31.5 MCHC 33.8 RDW 13.4 Plt Count 258 Neut % (Auto) 62.0 Lymph % (Auto) 24.0 L [place] % (Auto) 8.7 Eos % (Auto) 4.4 H Baso % (Auto) 0.9 Neut # (Auto) 4100 Lymph # (Auto) 1600 [place] # (Auto) 600 Eos # (Auto) 300 Baso # (Auto) 100 APTT D-Dimer Sodium 135 L Potassium 4.1 Chloride 102 Carbon Dioxide 25 BUN 14 Creatinine 0.55 Estimated GFR > 60.0 BUN/Creatinine Ratio 25.5 H Glucose 107 Lactate 0.9 Calcium 9.8 Total Bilirubin 0.8 AST 43 H ALT 27 Alkaline Phosphatase 44 Troponin I NT-Pro-B Natriuret Pep 2380 H Total Protein 7.6 Albumin 4.8 Globulin 2.8 Albumin/Globulin Ratio 1.7 TSH SARS-CoV-2 (PCR) 06/21/21 06/21/21 06/21/21 16:37 16:45 18:22 WBC RBC Hgb Hct MCV MCH MCHC RDW Plt Count Neut % (Auto) Lymph % (Auto) [place] % (Auto) Eos % (Auto) Baso % (Auto) Neut # (Auto) Lymph # (Auto) [place] # (Auto) Eos # (Auto) Baso # (Auto) APTT D-Dimer < 200 Sodium Potassium Chloride Carbon Dioxide BUN Creatinine Estimated GFR BUN/Creatinine Ratio Glucose Lactate Calcium Total Bilirubin AST ALT Alkaline Phosphatase Troponin I 0.690 H* NT-Pro-B Natriuret Pep Total Protein Albumin Globulin Albumin/Globulin Ratio TSH SARS-CoV-2 (PCR) Negative 06/21/21 06/21/21 06/21/21 18:22 18:22 19:30 WBC RBC Hgb Hct MCV MCH MCHC RDW Plt Count Neut % (Auto) Lymph % (Auto) [place] % (Auto) Eos % (Auto) Baso % (Auto) Neut # (Auto) Lymph # (Auto) [place] # (Auto) Eos # (Auto) Baso # (Auto) APTT 31 D-Dimer Sodium Potassium Chloride Carbon Dioxide BUN Creatinine Estimated GFR BUN/Creatinine Ratio Glucose Lactate Calcium Total Bilirubin AST ALT Alkaline Phosphatase Troponin I 0.630 H* NT-Pro-B Natriuret Pep Total Protein Albumin Globulin Albumin/Globulin Ratio TSH 2.63 SARS-CoV-2 (PCR) 06/21/21 06/22/21 23:15 01:44 WBC 5.3 RBC 3.77 L Hgb 11.8 L Hct 35.4 L MCV 93.7 MCH 31.3 MCHC 33.4 RDW 12.9 Plt Count 224 Neut % (Auto) 47.8 L Lymph % (Auto) 38.8 [place] % (Auto) 6.5 Eos % (Auto) 6.4 H Baso % (Auto) 0.5 Neut # (Auto) 2500 Lymph # (Auto) 2000 [place] # (Auto) 300 Eos # (Auto) 300 Baso # (Auto) 0 APTT D-Dimer Sodium Potassium Chloride Carbon Dioxide BUN Creatinine Estimated GFR BUN/Creatinine Ratio Glucose Lactate Calcium Total Bilirubin AST ALT Alkaline Phosphatase Troponin I NT-Pro-B Natriuret Pep Total Protein Albumin Globulin Albumin/Globulin Ratio TSH SARS-CoV-2 (PCR) Negative Assessment & Plan Assessment & Plan narrative: Chanda Aggarwal will be admitted to the inpatient service for a heparin infusion and hopeful transfer to a tertiary center with cardiac catheterization services. 1. Acute NSTEMI, present on admission - She was administered full strength aspirin and started on a heparin drip p er protocol - cardiac monitoring - Troponin is trending down, currently 0.565 - Nitro for chest pain - O2 prn, she was started on 2L O2, because she appeared to desaturate, but once her hand was warmed up, she did not require oxygen due to having O2 sats of 100% - She was strongly encouraged to quit smoking 2. New onset CHF exacerbation - Pro-BNP was 2380 - She is ordered for a complete echo in the am 3. Risk stratification - Lipid panel and A1c pending VTE Prophylaxis: Wells risk score 3 [X] Bilateral SCDs Patient is currently anticoagulated on a heparin drip for ACS Patient is admitted to the inpatient service due to the severity of disease, risks of further disease progression and this stay is expected to exceed 2 midnights. FEN: IV fluids: saline lock, diet: heart healthy, labs: CBC, C/BMP, liver enzymes, Mag, PT/INR Consultants Discussion w/Dr. Davis who is trying to arrange for admission to [facility], care and involvement in the patient?s care is appreciated. Dispo: transfer to tertiary center for cardiac catheterization Code status: Full as discussed with the patient who identifies sisterAmada as her surrogate and POA. [X] I have utilized all available immediate resources to obtain, update, or review of the patient's current medications COVID-19 COVID-19 status: Negative Result date/Date tested (Pos, Neg/Pending): 06/22/21 Time Spent With Patient Critical Care time: I spent a total of [] minutes of critical care time on this patient's care today; this time is exclusive of procedural time. Scores Wells' Criteria for PE Clinical signs and symptoms of DVT: Yes PE is #1 Dx or equally likely: No Heart rate > 100: No Immobilization at least 3 days or surg in previous 4 weeks: No History of PE or DVT: No Hemoptysis: No Malignancy w/Treatment within 6 months or palliative: No Wells' PE Score total: 3 Quality VTE Deep Vein Thrombosis/Pulmonary Embolism Present on Admission: No MIPS - Admit I confirm the patient?s Advance Care Plan is present, Code status is documented, Surrogate decision maker is in patient?s record [If Yes, STOP here]: Yes MIPS - DC The patient has current or prior documentation of left ventricular ejection fraction (LVEF) less than 40%, or moderate or severely depressed left ventricular systolic function.: No
[2021-06-22 02:09] LABS: Alanine Aminotransferase 23 IU/L (<35); Albumin 4.3 g/dL (3.5-5.0); Alkaline Phosphatase 49 U/L (38-126); Aspartate Aminotransferase 30 IU/L (14-36); BUN Creatinine Ratio 18.8 (6-22); Bilirubin Total 0.5 mg/dL (0.2-1.3); Bilirubin Unconjugated 0.4 mg/dL (0.0-1.1); Blood Urea Nitrogen 13 mg/dL (7-17); Calcium 9.7 mg/dL (8.4-10.2); Carbon Dioxide 30 mmol/L (22-32); Chloride 98 mmol/L (98-107); Estimated Glomerular Filt Rate > 60.0 mL/min (>60); Globulin 2.2 g/dL (1.7-4.1); Glucose 140 mg/dL (80-110); HEMOLYSIS < 15 (0-50); Magnesium 2.1 mg/dL (1.6-2.3); Sodium 135 mmol/L (137-145); Total Protein 6.5 g/dL (6.3-8.2)
[2021-06-22 02:15] LABS: PTT Partial Thromboplastin Tim 78 SECONDS (26.4-36.2)
[2021-06-22 02:22] LABS: Troponin I 0.565 ng/mL (0.01-0.034)
[2021-06-22] MEDS: HEPARIN DRIP 25,000 UNIT/500 ML IV.SOLN 10.8 UNIT IV (02:27)
[2021-06-22 02:49] LABS: Cholesterol 187 mg/dL (140-199); Triglycerides 54 mg/dL (35-150)
[2021-06-22 02:59] LABS: Hemoglobin A1C% w Est Avg Glu 5.2 % (4.0-6.0)
[2021-06-22 03:01] LABS: HDL Cholesterol 112 mg/dL (40-60); LDL Cholesterol Calculated 64 mg/dL (<100)
[2021-06-22] MEDS: SODIUM CHLORIDE 0.9% 500 ML 1000 ML IV (03:46)
[2021-06-22 08:03] LABS: PTT Partial Thromboplastin Tim 41 SECONDS (26.4-36.2)
[2021-06-22 08:28] LABS: Troponin I 0.542 ng/mL (0.01-0.034)
--- NOTE | 2021-06-22 09:00 | DI.ECHO.S_ITS ---
[facility] +---------+ Hospital +---------+ : : [address] : : : : [id number] : : : : Phone: [phone]+ Echocardiogram Report + + :Name: HAYES HILARIO Study Date: 06/22/2021 Height: 61 in : [facility] ReadingLocation: Weight: 100 lb: : Gender: Female BSA: 1.4 m2 : :: 1955 Age: 66 yrs BP: 93/56 mmHg: :Reason For Study: ELEVATED TROPONINS : :Ordering Physician: VIRGIE WEBBER Performed By: Lore Stern : :Referring: VIRGIE WEBBER : + + Interpretation Summary The ejection fraction is estimated to be 60-65%. Diastolic parameters suggest probable normal left ventricular diastolic function and normal filling pressures. The right ventricle is normal in size and function. There is mild tricuspid regurgitation. Unable to estimate PASP. Trace pericardial effusion. Procedure: A two-dimensional transthoracic echocardiogram with color flow and Doppler was performed. The study quality was technically adequate. There is no prior echocardiogram noted for this patient. The patient was in sinus bradycardia with heart rates between 48-56 bpm during the exam. Left Ventricle: Proximal septal thickening is noted. The left ventricular outflow velocity with valsalva is 2.86m/s. The LVOT velocity is 1.81m/s m/s. A false chord is noted (normal variant). The ejection fraction is estimated to be 60-65%. Diastolic parameters suggest probable normal left ventricular diastolic function and normal filling pressures. Right Ventricle: The right ventricle is normal in size and function. Atria: The left atrial size is normal. Right atrial size is normal. There is no Doppler evidence for an interatrial shunt. Mitral Valve: The mitral valve is normal in structure and function. There is mild mitral annular calcification. There is trace mitral regurgitation. Aortic Valve: The aortic valve is trileaflet. The aortic valve opens well. There is no aortic valve stenosis. No aortic regurgitation is present. Tricuspid Valve: The tricuspid valve is normal in structure and function. There is mild tricuspid regurgitation. Pulmonic Valve: The pulmonic valve is not well visualized. There is no pulmonic valvular regurgitation. Great Vessels: The aortic root is normal size. The ascending aorta could not be visualized. The IVC is of normal diameter and collapses greater than 50% with a sniff. This suggests a low right atrial pressure of 3 mm Hg. Pericardium/ Pleura Trace pericardial effusion. There is no pleural effusion. MMode/2D Measurements & Calculations LVIDd: 4.6 cm LVOT diam: 2.0 cm LVIDs: 3.0 cm Ao root diam: 3.0 cm FS: 35.2 % Ao Arch Diam (Prox Trans): 2.3 cm IVSd: 0.64 cm LVPWd: 0.66 cm LV ramirez. diameter/BSA (cm/m^2): 3.3 LV sys. diameter/BSA (cm/m^2): 2.1 LA A2 area: 16.2 cm2 RA long axis: 4.4 cm LA A4 area: 15.0 cm2 RA area: 14.7 cm2 LA length (vol): 4.5 cm RA vol: 41.5 ml LA vol: 45.5 ml RA : 29.5 ml/m2 LA vol index: 32.3 ml/m2 IVC diam: 1.00 cm RVD1 (basal): 3.2 cm TAPSE: 2.1 cm Doppler Measurements & Calculations Ao V2 max: 164.1 cm/sec LVOT Max Matthew: 168.3 cm/sec Ao V2 mean: 126.0 cm/sec LV V1 max P.3 mmHg Ao max P.8 mmHg LV V1 VTI: 37.7 cm Ao mean P.8 mmHg TARA(I,D): 3.1 cm2 Ao V2 VTI: 37.9 cm TARA(V,D): 3.2 cm2 sev ratio: 1.00 TARA indexed to BSA (cm^2/m^2): 2.2 MV E max matthew: 88.0 cm/sec TR max matthew: 228.4 cm/sec MV A max matthew: 66.9 cm/sec TR max P.9 mmHg MV E/A: 1.3 PA V2 max: 87.4 cm/sec Med Peak E' Matthew: 6.2 cm/sec PA V2 mean: 55.1 cm/sec E/E' med: 14.2 PA mean P.5 mmHg Lat Peak E' Matthew: 8.0 cm/sec PA pr(Accel): 27.6 mmHg E/E' lat: 11.0 E/e' average: 12.6 MV dec time: 0.24 sec SV(LVOT): 116.7 ml Reading Physician:11:29 AM
[2021-06-22] MEDS: METOPROLOL ER 50 MG TABLET 25 MG PO (09:10)
--- NOTE | 2021-06-22 11:43 | PM.PN.1 ---
Subjective Subjective Date Patient Seen: 06/22/21 Time Patient Seen: 11:43 Interval history: No complaints this morning. Denies chest pain, shortness of breath at rest, nausea, vomiting. Tolerating her diet. Pending transfer for [facility] per cardiology recommendations. Exam Vital Signs (past 8 hours): - 06/22/21 05:36 06/22/21 08:49 06/22/21 09:40 Temperature 99.0 F Pulse Rate 58 L Respiratory Rate 16 Blood Pressure 103/49 L 91/45 L Pulse Oximetry 99 99 06/22/21 11:05 Temperature 98.9 F Pulse Rate 58 L Respiratory Rate 16 Blood Pressure 96/52 L Pulse Oximetry 98 Oxygen Delivery Method Room Air Oxygen Flow Rate 0 Narrative Exam Narrative: Gen: Alert, oriented, thin 66 y.o. ? female, mildly chronically ill appearing, slightly anxious. HEENT: normocephalic, atraumatic, conjunctiva clear, sclera non-icteric, oral mucosa pink and moist Neck: supple, full ROM, no JVD, trachea is midline Resp: Lungs CTA, non-labored breathing CV: RRR, no murmur or rubs Abd: soft, non-tender, normoactive BTs Skin: no lesions or rashes, dry and intact Neuro: Alert and oriented X 4 w/no focal deficits. Speech clear and coherent. Extremities: no edema or joint effusion Psyche: normal mood and affect. Objective Labs Result Diagrams: 06/22/21 01:44 06/22/21 01:44 Labs: Laboratory Results - last 24 hr 06/21/21 06/21/21 06/21/21 16:37 16:37 16:37 WBC 6.6 RBC 4.14 Hgb 13.0 Hct 38.6 MCV 93.2 MCH 31.5 MCHC 33.8 RDW 13.4 Plt Count 258 Neut % (Auto) 62.0 Lymph % (Auto) 24.0 L Sac % (Auto) 8.7 Eos % (Auto) 4.4 H Baso % (Auto) 0.9 Neut # (Auto) 4100 Lymph # (Auto) 1600 Sac # (Auto) 600 Eos # (Auto) 300 Baso # (Auto) 100 APTT D-Dimer Sodium 135 L Potassium 4.1 Chloride 102 Carbon Dioxide 25 BUN 14 Creatinine 0.55 Estimated GFR > 60.0 BUN/Creatinine Ratio 25.5 H Glucose 107 Hemoglobin A1c Lactate 0.9 Calcium 9.8 Magnesium Total Bilirubin 0.8 Conjugated Bilirubin Unconjugated Bilirubin AST 43 H ALT 27 Alkaline Phosphatase 44 Troponin I NT-Pro-B Natriuret Pep 2380 H Total Protein 7.6 Albumin 4.8 Globulin 2.8 Albumin/Globulin Ratio 1.7 Triglycerides Cholesterol LDL Cholesterol, Calc HDL Cholesterol TSH SARS-CoV-2 (PCR) 06/21/21 06/21/21 06/21/21 16:37 16:45 18:22 WBC RBC Hgb Hct MCV MCH MCHC RDW Plt Count Neut % (Auto) Lymph % (Auto) Sac % (Auto) Eos % (Auto) Baso % (Auto) Neut # (Auto) Lymph # (Auto) Sac # (Auto) Eos # (Auto) Baso # (Auto) APTT D-Dimer < 200 Sodium Potassium Chloride Carbon Dioxide BUN Creatinine Estimated GFR BUN/Creatinine Ratio Glucose Hemoglobin A1c Lactate Calcium Magnesium Total Bilirubin Conjugated Bilirubin Unconjugated Bilirubin AST ALT Alkaline Phosphatase Troponin I 0.690 H* NT-Pro-B Natriuret Pep Total Protein Albumin Globulin Albumin/Globulin Ratio Triglycerides Cholesterol LDL Cholesterol, Calc HDL Cholesterol TSH SARS-CoV-2 (PCR) Negative 06/21/21 06/21/21 06/21/21 18:22 18:22 19:30 WBC RBC Hgb Hct MCV MCH MCHC RDW Plt Count Neut % (Auto) Lymph % (Auto) Sac % (Auto) Eos % (Auto) Baso % (Auto) Neut # (Auto) Lymph # (Auto) Sac # (Auto) Eos # (Auto) Baso # (Auto) APTT 31 D-Dimer Sodium Potassium Chloride Carbon Dioxide BUN Creatinine Estimated GFR BUN/Creatinine Ratio Glucose Hemoglobin A1c Lactate Calcium Magnesium Total Bilirubin Conjugated Bilirubin Unconjugated Bilirubin AST ALT Alkaline Phosphatase Troponin I 0.630 H* NT-Pro-B Natriuret Pep Total Protein Albumin Globulin Albumin/Globulin Ratio Triglycerides Cholesterol LDL Cholesterol, Calc HDL Cholesterol TSH 2.63 SARS-CoV-2 (PCR) 06/21/21 06/22/21 06/22/21 23:15 01:44 01:44 WBC RBC Hgb Hct MCV MCH MCHC RDW Plt Count Neut % (Auto) Lymph % (Auto) Sac % (Auto) Eos % (Auto) Baso % (Auto) Neut # (Auto) Lymph # (Auto) Sac # (Auto) Eos # (Auto) Baso # (Auto) APTT 78 H* D D-Dimer Sodium Potassium Chloride Carbon Dioxide BUN Creatinine Estimated GFR BUN/Creatinine Ratio Glucose Hemoglobin A1c Lactate Calcium Magnesium Total Bilirubin Conjugated Bilirubin Unconjugated Bilirubin AST ALT Alkaline Phosphatase Troponin I 0.565 H* NT-Pro-B Natriuret Pep Total Protein Albumin Globulin Albumin/Globulin Ratio Triglycerides Cholesterol LDL Cholesterol, Calc HDL Cholesterol TSH SARS-CoV-2 (PCR) Negative 06/22/21 06/22/21 06/22/21 01:44 01:44 01:44 WBC 5.3 RBC 3.77 L Hgb 11.8 L Hct 35.4 L MCV 93.7 MCH 31.3 MCHC 33.4 RDW 12.9 Plt Count 224 Neut % (Auto) 47.8 L Lymph % (Auto) 38.8 Sac % (Auto) 6.5 Eos % (Auto) 6.4 H Baso % (Auto) 0.5 Neut # (Auto) 2500 Lymph # (Auto) 2000 Sac # (Auto) 300 Eos # (Auto) 300 Baso # (Auto) 0 APTT D-Dimer Sodium 135 L Potassium 4.0 Chloride 98 Carbon Dioxide 30 BUN 13 Creatinine 0.69 Estimated GFR > 60.0 BUN/Creatinine Ratio 18.8 Glucose 140 H Hemoglobin A1c Lactate Calcium 9.7 Magnesium 2.1 Total Bilirubin 0.5 Conjugated Bilirubin 0.0 Unconjugated Bilirubin 0.4 AST 30 ALT 23 Alkaline Phosphatase 49 Troponin I NT-Pro-B Natriuret Pep Total Protein 6.5 Albumin 4.3 Globulin 2.2 Albumin/Globulin Ratio 2.0 Triglycerides 54 Cholesterol 187 LDL Cholesterol, Calc 64 HDL Cholesterol 112 H TSH SARS-CoV-2 (PCR) 06/22/21 06/22/21 06/22/21 01:44 07:43 07:43 WBC RBC Hgb Hct MCV MCH MCHC RDW Plt Count Neut % (Auto) Lymph % (Auto) Sac % (Auto) Eos % (Auto) Baso % (Auto) Neut # (Auto) Lymph # (Auto) Sac # (Auto) Eos # (Auto) Baso # (Auto) APTT 41 H D D-Dimer Sodium Potassium Chloride Carbon Dioxide BUN Creatinine Estimated GFR BUN/Creatinine Ratio Glucose Hemoglobin A1c 5.2 Lactate Calcium Magnesium Total Bilirubin Conjugated Bilirubin Unconjugated Bilirubin AST ALT Alkaline Phosphatase Troponin I 0.542 H* NT-Pro-B Natriuret Pep Total Protein Albumin Globulin Albumin/Globulin Ratio Triglycerides Cholesterol LDL Cholesterol, Calc HDL Cholesterol TSH SARS-CoV-2 (PCR) PFSH Medical History Osteoarthritis (arthritis due to wear and tear of joints) Family History (Updated 06/22/21 @ 02:22 by JEREMY Song) Mother Dementia Father Diabetes mellitus Sister Breast cancer Other Hypertension Social History household members: spouse and family Smoking Status: Current some day smoker Assessment & Plan Assessment & Plan narrative: Chanda Aggarwal is a 66 F admitted with NSTEMI 1. Acute NSTEMI, present on admission - continue heparin gtt for 48 hours. Started statin, beta una if hypertensive. Pending transfer to center with [facility] capabilities. - Troponin is trending down, currently 0.542 can stop trending. - Nitro prn for chest pain - She was strongly encouraged to quit smoking -TSH 2.63. A1c 5.2%. TC 187, LDL 64, HDL 112, TG 54. 2. Acute diastolic heart failure - Pro-BNP was 2380, echo with a normal EF, probable normal diastolic function. There was also a trace pericardial effusion. Acute issues may be due to NSTEMI. Patient was given 40 mg IV lasix in the ER with improvement in symptoms. Consultants? Discussion w/Dr. Davis who is trying to arrange for admission to [facility], care and involvement in the patient?s care is appreciated. Dispo: transfer to tertiary center for cardiac catheterization, pending bed availability Code status: Full as discussed with the patient who identifies sisterAmada as her surrogate and POA. COVID-19 COVID-19 status: Negative Time Spent With Patient Critical Care time: I spent a total of [] minutes of critical care time on this patient's care today; this time is exclusive of procedural time. Quality VTE Deep Vein Thrombosis/Pulmonary Embolism Present on Admission: No
--- NOTE | 2021-06-22 11:52 | CM.DANOTE ---
Patient is a 66 yo female who was admitted on 06/21/21 for SOB. Pt has MCR and BCBS OUT STATE REG for insurance and her PCP is Donna Villegas. EMR was reviewed. Per MD, pt with acute NSTEMI and new CHF and awaiting hospital transfer for higher level of Cardiology needs for heart cath. Per roll operator, pt on list for [facility], [facility], and [facility] and will need to transport via ALS stretcher due to cardiac monitoring needs. SW met bedside with pt and spouse Amir and explained role and they confirm that they live in [place] on [address] and pt is Independent at baseline with ADL's, does not use DME, and still drives. 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 Pt denies any hx of HH or SNF or any previous admissions to the hospital and is aware that she is awaiting hospital transfer. Pt has become increasingly short of breath with exertion and below baseline. Pt and spouse admit that they are anxious and nervous with this new medical need and dx. Spouse inquired if he can ride in the ambulance with pt for hospital transfer and SW asked roll operator and called [facility] and confirmed that they cannot allow ride alongs due to COVID precautions and pt's medical needs. SW updated pt and spouse and also informed them that depending on which hospital pt is transferred to, spouse may not be allowed to visit due to COVID precautions and visitor policies. Spouse acknowledges understanding. Plan: SW to follow closely for hospital transfer for higher level of care needs with a Sales Service Supervisor. MAGALI Preston Discharge Planning/Care Management CM Discharge Assessment Start: 06/22/21 11:40 Freq: Status: Active Protocol: Document 06/22/21 11:40 BF (Rec: 06/22/21 11:52 [id number]) Discharge Planning Assessment Assigned Assistant Professor Of Music magali vegas DPOA/Assigned Designee Name spouse Marin Contact Information [phone] Advance Directives? No Advance Directives on File No History Provided By Patient,Significant Other, Medical Record Has Patient been admitted in last 30 No days? Prior Living Arrangements House Household Members spouse,family Type of transporation used prior to Drives own vehicle admit Independent with ADL's Yes Is patient alert and oriented? Yes Caregiver for Another No Comment pending hospital transfer Barriers to Discharge No Discharge Plan Transfer to Higher Level of Care Transportation Arrangement Awaiting bed availability for hospital transfer and will tranport via ALS stretcher Whiteboard Updated in Patient Room with Yes name and ext. # of Assistant Professor Of Music Review Status In Process Please Provide Date Initial DC 06/22/21 Assessment Was Performed Next Review Type Continued Stay Review
[2021-06-22 14:25] LABS: PTT Partial Thromboplastin Tim 34 SECONDS (26.4-36.2)
[2021-06-22] MEDS: ACETAMINOPHEN 325 MG TABLET 650 MG PO (16:03)
[2021-06-22] MEDS: HEPARIN 5,000 UNIT/ML VIAL 3000 UNIT IV (16:04)
[2021-06-22 20:00] LABS: PTT Partial Thromboplastin Tim 95 SECONDS (26.4-36.2)
[2021-06-22] MEDS: DULOXETINE 30 MG CAPSULE 60 MG PO (20:29)
[2021-06-22] MEDS: ATORVASTATIN 20 MG TABLET 80 MG PO (20:30)
[2021-06-22] MEDS: SODIUM CHLORIDE 0.9% 1,000 ML 1000 ML IV (20:30)
[2021-06-23] VITALS: BP 103/57; PULSE 68; RESP 18; TEMP 36.2; O2SAT 96
[2021-06-23] MEDS: ACETAMINOPHEN 325 MG TABLET 650 MG PO (00:18)
[2021-06-23 03:11] LABS: Add Manual Diff / Slide Review NO; Basophils Absolute Auto 200 /uL (0-100); Basophils Percent Auto 4.2 % (0-2); Eosinophils Absolute Auto 500 /uL (0-450); Eosinophils Percent Auto 11.7 % (2-4); Hematocrit 32.4 % (36-46); Lymphocytes Absolute Auto 1100 /uL (1100-4500); Lymphocytes Percent Auto 23.7 % (25-40); Mean Corpuscular HGB Conc 33.9 % (30-36); Mean Corpuscular Hemoglobin 31.4 PG (26-34); Mean Corpuscular Volume 92.8 fL (80-100); Monocytes Absolute Auto 300 /uL (0-900); Monocytes Percent Auto 7.3 % (3-14); Neutrophils Absolute Auto 2400 /uL (1500-7000); Neutrophils Percent Auto 53.1 % (50-75); Platelet Count 187 X10^3/uL (150-400); Red Cell Distribution Width 13.1 % (11.6-14.8); White Blood Cell Count 4.4 X10^3/uL (4.5-11.0)
[2021-06-23 03:14] LABS: Blood Urea Nitrogen 17 mg/dL (7-17); Calcium 9.2 mg/dL (8.4-10.2); Carbon Dioxide 28 mmol/L (22-32); Chloride 104 mmol/L (98-107); Estimated Glomerular Filt Rate > 60.0 mL/min (>60); Glucose 106 mg/dL (80-110); HEMOLYSIS < 15 (0-50); Magnesium 2.1 mg/dL (1.6-2.3); Potassium 4.4 mmol/L (3.4-5.1); Sodium 135 mmol/L (137-145)
[2021-06-23 03:20] LABS: PTT Partial Thromboplastin Tim 44 SECONDS (26.4-36.2)
[2021-06-23 04:41] VITALS: BP 127/66; PULSE 65; RESP 17; TEMP 36.4; O2SAT 97
[2021-06-23] MEDS: DULOXETINE 30 MG CAPSULE 60 MG PO (09:35)
[2021-06-23 10:55] VITALS: BP 109/50; PULSE 57; RESP 16; TEMP 37.3; O2SAT 100
[2021-06-23 11:04] LABS: PTT Partial Thromboplastin Tim 42 SECONDS (26.4-36.2)
--- NOTE | 2021-06-23 12:08 | PM.PN.1 ---
Subjective Subjective Date Patient Seen: 06/23/21 Time Patient Seen: 12:08 Interval history: ?No complaints this morning. Denies chest pain, shortness of breath at rest, nausea, vomiting. Tolerating her diet. Pending transfer for [facility] per cardiology recommendations. Exam Vital Signs (past 8 hours): - 06/23/21 04:41 06/23/21 10:55 Temperature 97.5 F L 99.2 F Pulse Rate 65 57 L Respiratory Rate 17 16 Blood Pressure 127/66 109/50 L Pulse Oximetry 97 100 Oxygen Delivery Method Room Air Oxygen Flow Rate 0 Narrative Exam Narrative: Gen: Alert, oriented, thin 66 y.o. ? female, mildly chronically ill appearing, slightly anxious. HEENT: normocephalic, atraumatic, conjunctiva clear, sclera non-icteric, oral mucosa pink and moist Neck: supple, full ROM, no JVD, trachea is midline Resp: Lungs CTA, non-labored breathing CV: RRR, no murmur or rubs Abd: soft, non-tender, normoactive BTs Skin: no lesions or rashes, dry and intact Neuro: Alert and oriented X 4 w/no focal deficits. Speech clear and coherent. Extremities: no edema or joint effusion Psyche: normal mood and affect. Objective Labs Result Diagrams: 06/23/21 02:53 06/23/21 02:53 Labs: Laboratory Results - last 24 hr 06/22/21 06/22/21 06/23/21 13:55 19:43 02:53 WBC RBC Hgb Hct MCV MCH MCHC RDW Plt Count Neut % (Auto) Lymph % (Auto) [place] % (Auto) Eos % (Auto) Baso % (Auto) Neut # (Auto) Lymph # (Auto) [place] # (Auto) Eos # (Auto) Baso # (Auto) APTT 34 D 95 H* D 44 H D Sodium Potassium Chloride Carbon Dioxide BUN Creatinine Estimated GFR BUN/Creatinine Ratio Glucose Calcium Magnesium 06/23/21 06/23/21 06/23/21 02:53 02:53 09:08 WBC 4.4 L RBC 3.50 L Hgb 11.0 L Hct 32.4 L MCV 92.8 MCH 31.4 MCHC 33.9 RDW 13.1 Plt Count 187 Neut % (Auto) 53.1 Lymph % (Auto) 23.7 L [place] % (Auto) 7.3 Eos % (Auto) 11.7 H Baso % (Auto) 4.2 H Neut # (Auto) 2400 Lymph # (Auto) 1100 [place] # (Auto) 300 Eos # (Auto) 500 H Baso # (Auto) 200 H APTT 42 H Sodium 135 L Potassium 4.4 Chloride 104 Carbon Dioxide 28 BUN 17 Creatinine 0.63 Estimated GFR > 60.0 BUN/Creatinine Ratio 27.0 H Glucose 106 Calcium 9.2 Magnesium 2.1 PFSH Medical History Osteoarthritis (arthritis due to wear and tear of joints) Family History (Updated 06/22/21 @ 02:22 by JEREMY Song) Mother Dementia Father Diabetes mellitus Sister Breast cancer Other Hypertension Social History household members: spouse and family Smoking Status: Current some day smoker Assessment & Plan Assessment & Plan narrative: Chanda Aggarwal is a 66 F admitted with NSTEMI 1. Acute NSTEMI, present on admission - continue heparin gtt for 48 hours. Started statin, beta una if hypertensive. Pending transfer to center with [facility] capabilities. May need to come up with alternative plan if nothing is available. - Troponin is trending down, currently 0.542 can stop trending. TTE as noted below. - Nitro prn for chest pain - She was strongly encouraged to quit smoking -TSH 2.63. A1c 5.2%. TC 187, LDL 64, HDL 112, TG 54. 2. Acute diastolic heart failure - Pro-BNP was 2380, echo with a normal EF, probable normal diastolic function. There was also a trace pericardial effusion. Acute issues may be due to NSTEMI. Patient was given 40 mg IV lasix in the ER with improvement in symptoms. Consultants? Discussion w/Dr. Davis in ER who is trying to arrange for admission to [facility], care and involvement in the patient?s care is appreciated. Dispo: transfer to tertiary center for cardiac catheterization, pending bed availability Code status: Full as discussed with the patient who identifies sisterAmada as her surrogate and POA. Time Spent With Patient Critical Care time: I spent a total of [] minutes of critical care time on this patient's care today; this time is exclusive of procedural time. Quality VTE Deep Vein Thrombosis/Pulmonary Embolism Present on Admission: No
[2021-06-23 16:05] LABS: PTT Partial Thromboplastin Tim 44 SECONDS (26.4-36.2)
[2021-06-23] MEDS: HEPARIN DRIP 25,000 UNIT/500 ML IV.SOLN 10.8 UNIT IV (19:35)
[2021-06-23 19:58] VITALS: BP 101/46; PULSE 67; RESP 17; TEMP 36.9; O2SAT 97
[2021-06-23] MEDS: ATORVASTATIN 20 MG TABLET 80 MG PO (21:47)
[2021-06-23] MEDS: SODIUM CHLORIDE 0.9% FLUSH 10 ML IV (21:48)
[2021-06-23 21:55] LABS: PTT Partial Thromboplastin Tim 49 SECONDS (26.4-36.2)
[2021-06-24] VITALS (7 sets, daily range): BP systolic 95–116; BP diastolic 38–59; PULSE 61–98; RESP 14–20; TEMP 36.4–37.1; O2SAT 96–100
[2021-06-24 03:57] LABS: Add Manual Diff / Slide Review NO; Basophils Absolute Auto 0 /uL (0-100); Basophils Percent Auto 0.8 % (0-2); Eosinophils Absolute Auto 300 /uL (0-450); Eosinophils Percent Auto 6.8 % (2-4); Hematocrit 34.7 % (36-46); Hemoglobin 11.9 g/dL (12.0-16.0); Lymphocytes Absolute Auto 1500 /uL (1100-4500); Lymphocytes Percent Auto 31.6 % (25-40); Mean Corpuscular HGB Conc 34.2 % (30-36); Mean Corpuscular Hemoglobin 31.5 PG (26-34); Mean Corpuscular Volume 92.2 fL (80-100); Monocytes Absolute Auto 300 /uL (0-900); Monocytes Percent Auto 6.9 % (3-14); Neutrophils Absolute Auto 2600 /uL (1500-7000); Neutrophils Percent Auto 53.9 % (50-75); Platelet Count 192 X10^3/uL (150-400); Red Blood Cell Count 3.77 X10^6/uL (4.0-5.2); Red Cell Distribution Width 12.8 % (11.6-14.8); White Blood Cell Count 4.9 X10^3/uL (4.5-11.0)
[2021-06-24 04:16] LABS: BUN Creatinine Ratio 22.8 (6-22); Blood Urea Nitrogen 13 mg/dL (7-17); Calcium 9.4 mg/dL (8.4-10.2); Carbon Dioxide 29 mmol/L (22-32); Chloride 104 mmol/L (98-107); Estimated Glomerular Filt Rate > 60.0 mL/min (>60); Glucose 104 mg/dL (80-110); HEMOLYSIS < 15 (0-50); Magnesium 2.1 mg/dL (1.6-2.3); Potassium 3.9 mmol/L (3.4-5.1); Sodium 135 mmol/L (137-145)
[2021-06-24 04:22] LABS: PTT Partial Thromboplastin Tim 65 SECONDS (26.4-36.2)
[2021-06-24] MEDS: DULOXETINE 30 MG CAPSULE 60 MG PO (10:00)
[2021-06-24] MEDS: ASPIRIN EC 81 MG TABLET PO (10:00)
[2021-06-24] MEDS: SODIUM CHLORIDE 0.9% FLUSH 10 ML IV ×2 (10:01→21:55)
--- NOTE | 2021-06-24 17:18 | PM.PN.1 ---
Subjective Subjective Date Patient Seen: 06/24/21 Time Patient Seen: 17:18 Interval history: No complaints this morning. Denies chest pain, shortness of breath at rest, nausea, vomiting. Tolerating her diet. Pending transfer for [facility] per cardiology recommendations. Exam Vital Signs (past 8 hours): - 06/24/21 13:00 Temperature 97.5 F L Pulse Rate 63 Respiratory Rate 16 Blood Pressure 102/52 L Pulse Oximetry 100 Oxygen Delivery Method Room Air Oxygen Flow Rate 0 Narrative Exam Narrative: Gen: Alert, oriented, thin 66 y.o. ? female, mildly chronically ill appearing, slightly anxious. HEENT: normocephalic, atraumatic, conjunctiva clear, sclera non-icteric, oral mucosa pink and moist Neck: supple, full ROM, no JVD, trachea is midline Resp: Lungs CTA, non-labored breathing CV: RRR, no murmur or rubs Abd: soft, non-tender, normoactive BTs Skin: no lesions or rashes, dry and intact Neuro: Alert and oriented X 4 w/no focal deficits. Speech clear and coherent. Extremities: no edema or joint effusion Psyche: normal mood and affect. Objective Labs Result Diagrams: 06/24/21 03:40 06/24/21 03:40 Labs: Laboratory Results - last 24 hr 06/23/21 06/24/21 06/24/21 21:38 03:40 03:40 WBC 4.9 RBC 3.77 L Hgb 11.9 L Hct 34.7 L MCV 92.2 MCH 31.5 MCHC 34.2 RDW 12.8 Plt Count 192 Neut % (Auto) 53.9 Lymph % (Auto) 31.6 [place] % (Auto) 6.9 Eos % (Auto) 6.8 H Baso % (Auto) 0.8 Neut # (Auto) 2600 Lymph # (Auto) 1500 [place] # (Auto) 300 Eos # (Auto) 300 Baso # (Auto) 0 APTT 49 H Sodium 135 L Potassium 3.9 Chloride 104 Carbon Dioxide 29 BUN 13 Creatinine 0.57 Estimated GFR > 60.0 BUN/Creatinine Ratio 22.8 H Glucose 104 Calcium 9.4 Magnesium 2.1 06/24/21 03:40 WBC RBC Hgb Hct MCV MCH MCHC RDW Plt Count Neut % (Auto) Lymph % (Auto) [place] % (Auto) Eos % (Auto) Baso % (Auto) Neut # (Auto) Lymph # (Auto) [place] # (Auto) Eos # (Auto) Baso # (Auto) APTT 65 H D Sodium Potassium Chloride Carbon Dioxide BUN Creatinine Estimated GFR BUN/Creatinine Ratio Glucose Calcium Magnesium [facility] Medical History Osteoarthritis (arthritis due to wear and tear of joints) Family History (Updated 06/22/21 @ 02:22 by JEREMY Song) Mother Dementia Father Diabetes mellitus Sister Breast cancer Other Hypertension Social History household members: spouse and family Smoking Status: Current some day smoker Assessment & Plan Assessment & Plan narrative: Chanda Aggarwal is a 66 F admitted with NSTEMI 1. Acute NSTEMI, present on admission - continue heparin gtt for 72 hours per updated cardiology recommendations today. Started statin, beta una if hypertensive. Pending transfer to center with [facility] capabilities, discussed again with cardiology, adamently against any discharge home and outpatient follow up despite current bed situation. - Troponin trended down, last was 0.542. TTE as noted below. - Nitro prn for chest pain - She was strongly encouraged to quit smoking -TSH 2.63. A1c 5.2%. TC 187, LDL 64, HDL 112, TG 54. 2. Acute diastolic heart failure - Pro-BNP was 2380, echo with a normal EF, probable normal diastolic function. There was also a trace pericardial effusion. Acute issues may be due to NSTEMI. Patient was given 40 mg IV lasix in the ER with improvement in symptoms. Consultants? [facility] cardiology. No current available beds. Dispo: transfer to tertiary center for cardiac catheterization, pending bed availability. Patient at [facility]. Code status: Full as discussed with the patient who identifies sisterAmada as her surrogate and POA. Time Spent With Patient Critical Care time: I spent a total of [] minutes of critical care time on this patient's care today; this time is exclusive of procedural time. Quality VTE Deep Vein Thrombosis/Pulmonary Embolism Present on Admission: No
--- NOTE | 2021-06-24 18:07 | PC.NURSE ---
Assumed care of pt at 0700. Pt resting in bed during hand-off. Denies chest pain, pressure, or tightness. Heparin infusion infusing per protocol. Noted MAR not updated to reflect rate of infusion. Upon attempting to enter prior infusion adjustments in MAR, MAR will not allow prior days adjustment. See paper Heparin Infusion Protocol hand-written infusion flow record in paper chart. Current rate is 13.8 ml/hr, Orders to d/c infusion at 1944. Awaiting transfer to another facility, no open beds, on wait lists for other facilities. Pt updated on transfer status, verbalized understanding.
[2021-06-24] MEDS: ATORVASTATIN 20 MG TABLET 80 MG PO (21:46)
[2021-06-25] VITALS (7 sets, daily range): BP systolic 98–112; BP diastolic 42–58; PULSE 60–70; RESP 15–18; TEMP 36.2–37.2; O2SAT 96–100
--- NOTE | 2021-06-25 07:37 | P.PN_ITS ---
Subjective Subjective Date Patient Seen: 06/25/21 Interval history: She is seen in her room here on 06/25/2021. She has had no further shortness of breath and has had no chest pain. She is pending transfer for heart catheterization at the strong recommendation of Cardiology due to her non ST elevation myocardial infarct. She is quite frustrated by the prolonged hospitalization and wait. Her [place] today[place] Exam Vital Signs (past 8 hours): - 06/25/21 05:04 Temperature 97.7 F Pulse Rate 70 Respiratory Rate 16 Blood Pressure 98/42 L Pulse Oximetry 97 Oxygen Delivery Method Room Air Oxygen Flow Rate 0 Narrative Exam Narrative: Alert and oriented x3. No apparent distress. Heart is regular rhythm, bradycardia without murmur Lungs are clear to auscultation bilaterally Extremities have ankle edema Objective Labs Result Diagrams: 06/24/21 03:40 06/25/21 06:30 [facility] Medical History Osteoarthritis (arthritis due to wear and tear of joints) Family History (Updated 06/22/21 @ 02:22 by JEREMY Song) Mother Dementia Father Diabetes mellitus Sister Breast cancer Other Hypertension Social History household members: spouse and family Smoking Status: Current some day smoker Assessment & Plan Assessment & Plan narrative: hCanda Aggarwal is a 66 F admitted with NSTEMI 1. Acute NSTEMI, present on admission -completed heparin gtt for 72 hours per updated cardiology recommendations. Started statin, beta una if hypertensive. Pending transfer to center with [facility] capabilities, discussed again with cardiology on 06/24 a a, adamently against any discharge home and outpatient follow up despite current bed situation. - Troponin trended down, last was 0.542. TTE as noted below. - Nitro prn for chest pain - She was strongly encouraged to quit smoking -TSH 2.63. A1c 5.2%. TC 187, LDL 64, HDL 112, TG 54. 2. Acute diastolic heart failure - Pro-BNP was 2380, echo with a normal EF, probable normal diastolic func tion. There was also a trace pericardial effusion. Acute issues may be due to NSTEMI. Patient was given 40 mg IV lasix in the ER with improvement in symptoms. Consultants [facility] cardiology. No current available beds. Dispo: transfer to tertiary center for cardiac catheterization, pending bed availability. Patient at [facility]. Code status: Full as discussed with the patient who identifies sisterAmada as her surrogate and POA. Time Spent With Patient Critical Care time: I spent a total of [] minutes of critical care time on this patient's care today; this time is exclusive of procedural time. Quality VTE Deep Vein Thrombosis/Pulmonary Embolism Present on Admission: No
[2021-06-25 07:55] LABS: BUN Creatinine Ratio 22.6 (6-22); Blood Urea Nitrogen 12 mg/dL (7-17); Calcium 9.6 mg/dL (8.4-10.2); Carbon Dioxide 26 mmol/L (22-32); Chloride 104 mmol/L (98-107); Estimated Glomerular Filt Rate > 60.0 mL/min (>60); Glucose 94 mg/dL (80-110); HEMOLYSIS < 15 (0-50); Magnesium 2.1 mg/dL (1.6-2.3); Potassium 3.9 mmol/L (3.4-5.1); Sodium 136 mmol/L (137-145)
[2021-06-25] MEDS: ASPIRIN EC 81 MG TABLET PO (09:39)
[2021-06-25] MEDS: DULOXETINE 30 MG CAPSULE 60 MG PO (09:39)
[2021-06-25] MEDS: SODIUM CHLORIDE 0.9% FLUSH 10 ML IV ×2 (09:40→21:47)
--- NOTE | 2021-06-25 10:25 | CM.DPNOTE ---
DCP Cont: Per MD, pt remains stable but still awaiting hospital transfer for heart cath and postal delivery officer continues to attempt and check in with tertiary hospitals for bed availability. Per MD, discussion of pt discharging home while awaiting heart cath as she has been stable for consulted Cardiologists recommends pt needing to stay in the hospital while awaiting transfer. Plan: SW to follow for attempt at hospital transfer for higher level of care. Pt has had supportive spouse bedside. Pt quite active and independent at baseline. MAGALI Preston
--- NOTE | 2021-06-25 18:51 | P.DS_ITS ---
History of Present Illness History of Present Illness Date Patient Seen: 06/25/21 Time Patient Seen: 18:51 Chief complaint: shortness of breath Narrative: Anyi Aggarwal is a 66 year old female from [place] [facility] who presented to the emergency department for generalized shortness of breath she has had for quite a while but worsened over the past day. She does not take any medications and had been being seen by a fruit bar maker for osteoarthritis. The patient is a retired teacher and professional dancer and was dancing when she sat down for a break and was unable to get up and participate in what would have normally been a normal activity for her, she also states that during that time she became a little bit nauseous but did not vomit. She denies any chest pain, she did state a couple of weeks ago she had pain in her left side of her face t hat started out as a headache and then migrated to her left jaw. She states that she has been under a lot of stress and thought it was due to grinding her teeth and pretty much ignored. That pain seems to have largely resolved. She states now she gets short of breath when walking up a hill bending over and she is unable to catch her breath. She denies any congestion except that when she has been crying, she does have right leg muscle pain and left shoulder pain that she states is chronic. She also states that her right leg has gotten progressively weaker and is smaller than her left. She denies any changes in her upper extremities. She denies fevers, sweats, or chills, chest pain, cough, vomiting, abdominal pain, dysuria, lightheadedness, dizziness, syncope. Patient denies any leg swelling, prior history of DVTs or PE. Patient is a current smoker. In the process of assessing her in the emergency department they domenico up troponin and it was initially elevated at 0.690 then dropped to 0.0630 and the 3rd one is 0.565. EKG per ED provider indicated acute changes with a normal si nus rhythm. Chest x-ray is negative for any acute process. Patient is afebrile, blood pressure 93/56, heart rate 59, respiratory rate 17, oxygen saturation of 99% on room air, she weighs 45.3 kilos with a BMI of 18.8. She is mildly anemic with the hemoglobin of 11.8 and hematocrit of 35.4, rest of CBC is unremarkable sodium 135, glucose 140, A1c is pending, troponin was 0.565, proBNP is 2,380, lipid panel is pending, TSH 2.63, and COVID-19 PCR is negative. Discharge Providers Provider Date of admission: 06/21/21 22:36 Discharge Date: 06/25/21 Primary care physician: Donna Villegas MD Discharge provider: Chinedu Blake MD Summary Hospital Course Discharge Diagnosis: See below Hospital Course: Chanda Aggarwal is a 66 F admitted with NSTEMI 1. Acute NSTEMI, present on admission -completed heparin gtt for 72 hours per updated cardiology recommendations. Started statin, beta una if hypertensive. Pending transfer to center with [facility] capabilities, discussed again with cardiology on 06/24 continues to recommend against any discharge home and outpatient follow up despite current bed situation. - Troponin trended down, last was 0.542. TTE as noted below. - Nitro prn for chest pain - She was strongly encouraged to quit smoking -TSH 2.63. A1c 5.2%. TC 187, LDL 64, HDL 112, TG 54. 2. Acute diastolic heart failure - Pro-BNP was 2380, echo with a normal EF, probable normal diastolic function. There was also a trace pericardial effusion. Acute issues may be due to NSTEMI. Patient was given 40 mg IV lasix in the ER with improvement in symptoms. Consultants D/W Dr. Greene in [place] - accepted for transfer on 06/25/21 at 7 pm. Code status: Full as discussed with the patient who identifies sisterAmada as her surrogate and POA. Status at Discharge Cognitive/behavioral status at discharge: at baseline, oriented Functional status at discharge: independent ambulation Overall status at discharge: patient is back to baseline Exam Vital Signs (past 8 hours): - 06/25/21 13:22 06/25/21 17:14 Temperature 97.4 F L 98.4 F Pulse Rate 63 67 Respiratory Rate 16 15 Blood Pressure 102/52 L 106/58 L Pulse Oximetry 100 99 Oxygen Delivery Method Room Air Oxygen Flow Rate 0 Narrative Exam Narrative: Alert and oriented x3. No apparent distress. Heart is regular rhythm, bradycardia without murmur Lungs are clear to auscultation bilaterally Extremities have ankle edema Objective ECG Impression: NSR without abnormal ST or T wave changes Labs Result Diagrams: 06/24/21 03:40 06/25/21 06:30 Labs: Laboratory Results - last 24 hr 06/25/21 06:30 Sodium 136 L Potassium 3.9 Chloride 104 Carbon Dioxide 26 BUN 12 Creatinine 0.53 Estimated GFR > 60.0 BUN/Creatinine Ratio 22.6 H Glucose 94 Calcium 9.6 Magnesium 2.1 [facility] Medical History Osteoarthritis (arthritis due to wear and tear of joints) Family History (Updated 06/22/21 @ 02:22 by JEREMY Song) Mother Dementia Father Diabetes mellitus Sister Breast cancer Other Hypertension Social History household members: spouse and family Smoking Status: Current some day smoker Discharge Assessment & Plan Assessment and Plan Assessment: Chanda Aggarwal is a 66 F admitted with NSTEMI 1. Acute NSTEMI, present on admission -completed heparin gtt for 72 hours per updated cardiology recommendations. Started statin, beta una if hypertensive. Pending transfer to center with [facility] capabilities, discussed again with cardiology on 06/24 continues to recommend against any discharge home and outpatient follow up despite current bed situation. - Troponin trended down, last was 0.542. TTE as noted below. - Nitro prn for chest pain - She was strongly encouraged to quit smoking -TSH 2.63. A1c 5.2%. TC 187, LDL 64, HDL 112, TG 54. 2. Acute diastolic heart failure - Pro-BNP was 2380, echo with a normal EF, probable normal diastolic function. There was also a trace pericardial effusion. Acute issues may be due to NSTEMI. Patient was given 40 mg IV lasix in the ER with improvement in symptoms. Consultants D/W Dr. Greene in [place] - accepted for transfer on 06/25/21 at 7 pm. Code status: Full as discussed with the patient who identifies sisterAmada as her surrogate and POA. Discharge Plan Discharge Plan Patient Disposition: General Acute Hospital Other facility: [facility] Under care of provider: Dr. Boone and Dr. Greene Discharge Health Status Precautions: Drew Diet/Activity/Treatments Diet: Low-cholesterol Liquid consistency: Normal/Thin Food texture: Regular Discharge Data Primary Care Provider: Donna Villegas VTE Deep Vein Thrombosis/Pulmonary Embolism Present on Admission: No
[2021-06-25 20:08] LABS: COVID19 -Nasal RAPID Negative (Negative)
[2021-06-25] MEDS: ATORVASTATIN 20 MG TABLET 80 MG PO (21:47)
== END 2021-06-25 22:00 | disposition short-term general hospital (02) | DRG 280 ==
LOC: ED 21:44 → AC 22:37
PROVIDERS: Emergency Medicine; Internal Medicine; Student in an Organized Health Care Education/Training Program; Admitting Provider Nurse Practitioner Family; Emergency Provider Emergency Medicine; PCP Internal Medicine; Referring Provider Emergency Medicine; Visit Provider Nurse Practitioner Family
DX: I21.4 Non-ST elevation (NSTEMI) myocardial infarction (principal); I50.31 Acute diastolic (congestive) heart failure; F17.210 Nicotine dependence, cigarettes, uncomplicated; Z20.822 Contact with and (suspected) exposure to COVID-19
CPT/HCPCS: 36415; 71046; 80048; 80053; 80061; 80076; 83036; 83605; 83735; 83880; 84443; 84484; 85025; 85379; 85730; 87635; 93005; 93010; 93306; 94762; 96365; 96366; 96375; 99284; C9803; J1644; J1940

== ENCOUNTER → 2021-09-07 12:18 | Outpatient (CLI) | payer MEDICARE, OTHER, SELFPAY ==
[2021-06-21 23:37] VITALS: BMI 18.8
--- NOTE | 2021-09-07 12:21 | DI.MG.S_ITS ---
BILATERAL DIGITAL SCREENING MAMMOGRAM 3D/2D WITH CAD: 09/07/2021 CLINICAL: Routine screening. Family history of breast cancer. Comparison is made to exams dated: 03/18/2020 mammogram, 12/25/2018 mammogram, and 11/23/2017 mammogram - [facility]. There are scattered fibroglandular elements in both breasts. Current study was also evaluated with a Computer Aided Detection (CAD) system. There is a biopsy clip in the right breast. No significant masses, calcifications, or other findings are seen in either breast. There has been no significant interval change. IMPRESSION: NEGATIVE There is no mammographic evidence of malignancy. A 1 year screening mammogram is recommended. This exam was interpreted at Station ID: [id number]. NOTE: For mammograms, a report in lay terms will be sent to the patient. Approximately 15% of breast malignancies will not be visualized mammographically. In the management of a palpable breast mass, a negative mammogram must not discourage biopsy of a clinically suspicious lesion. Electronically Signed By: Trey Rodrigez M.D., jr/yolande:09/07/2021 13:10:58 letter sent: Normal Exam ACR BI-RADS Category 1: Negative 3341F
== END ==
PROVIDERS: PCP Nurse Practitioner Family; Referring Provider Nurse Practitioner Family; Visit Provider Nurse Practitioner Family
DX: Z12.31 Encounter for screening mammogram for malignant neoplasm of breast (principal)
CPT/HCPCS: 77063; 77067

== ENCOUNTER → 2022-09-21 12:00 | Outpatient (CLI) | payer MEDICARE, OTHER, SELFPAY ==
[2021-06-21 23:37] VITALS: BMI 18.8
--- NOTE | 2022-09-21 12:04 | DI.MG.S_ITS ---
BILATERAL DIGITAL SCREENING MAMMOGRAM 3D/2D WITH CAD: 09/21/2022 CLINICAL: Routine screening. Family history of breast cancer. Comparison is made to exams dated: 09/07/2021 mammogram, 03/18/2020 mammogram, and 12/25/2018 mammogram - [facility]. There are scattered areas of fibroglandular density in both breasts (category b / 25%-50% glandular tissue). Current study was also evaluated with a Computer Aided Detection (CAD) system. There is a biopsy clip in the right breast. No significant masses, calcifications, or other findings are seen in either breast. There has been no significant interval change. IMPRESSION: NEGATIVE There is no mammographic evidence of malignancy. A 1 year screening mammogram is recommended. Based on the Tyrer Cuzick model (a risk assessment model) the patient's lifetime risk is 14.4% and her 10 year risk is 7.6%. According to the ACR, ACS, and NCCN guidelines, an annual breast MRI exam along with mammogram is recommended if the patient's lifetime risk is 20% or greater. This exam was interpreted at Station ID: [id number]. NOTE: For mammograms, a report in lay terms will be sent to the patient. Approximately 15% of breast malignancies will not be visualized mammographically. In the management of a palpable breast mass, a negative mammogram must not discourage biopsy of a clinically suspicious lesion. Electronically Signed By: Akshat noriega/yolande:09/21/2022 18:06:43 letter sent: Normal Exam ACR BI-RADS Category 1: Negative 3341F
== END ==
PROVIDERS: PCP Nurse Practitioner Family; Referring Provider Nurse Practitioner Family; Visit Provider Nurse Practitioner Family
DX: Z12.31 Encounter for screening mammogram for malignant neoplasm of breast (principal); Z80.3 Family history of malignant neoplasm of breast
CPT/HCPCS: 77063; 77067

== ENCOUNTER → 2023-10-08 12:40 | Outpatient (CLI) | payer MEDICARE, OTHER, SELFPAY ==
[2021-06-21 23:37] VITALS: BMI 18.8
--- NOTE | 2023-10-08 | DI.MG.S_ITS ---
BILATERAL DIGITAL SCREENING MAMMOGRAM 3D/2D WITH CAD: 10/08/2023 CLINICAL: Routine screening. Family history of breast cancer. Comparison is made to exams dated: 09/21/2022 mammogram, 09/07/2021 mammogram, and 03/18/2020 mammogram - [facility]. There are scattered areas of fibroglandular density in both breasts (category b / 25%-50% glandular tissue). Current study was also evaluated with a Computer Aided Detection (CAD) system. There is a biopsy clip in the right breast. No significant masses, calcifications, or other findings are seen in either breast. There has been no significant interval change. IMPRESSION: BENIGN There is no mammographic evidence of malignancy. A 1 year screening mammogram is recommended. Based on the Tyrer Cuzick model (a risk assessment model) the patient's lifetime risk is 19.5% and her 10 year risk is 11.1%. According to the ACR, ACS, and NCCN guidelines, an annual breast MRI exam along with mammogram is recommended if the patient's lifetime risk is 20% or greater. This exam was interpreted at Station ID: [id number]. NOTE: For mammograms, a report in lay terms will be sent to the patient. Approximately 15% of breast malignancies will not be visualized mammographically. In the management of a palpable breast mass, a negative mammogram must not discourage biopsy of a clinically suspicious lesion. Electronically Signed By: Romie nguyen/yolande:10/08/2023 16:36:48 letter sent: Normal Exam ACR BI-RADS Category 2: Benign Finding(s) 3342F
== END ==
LOC: MAMMO 12:42
PROVIDERS: PCP Internal Medicine; Referring Provider Internal Medicine; Visit Provider Internal Medicine
DX: Z12.31 Encounter for screening mammogram for malignant neoplasm of breast (principal); Z80.3 Family history of malignant neoplasm of breast; R92.323 Mammographic fibroglandular density, bilateral breasts
CPT/HCPCS: 77063; 77067

== ENCOUNTER 2023-12-19 11:11 | Day surgery (SDC) | payer MEDICARE, OTHER, SELFPAY ==
[2021-06-21 23:37] VITALS: BMI 18.8
[2023-12-19] VITALS (8 sets, daily range): BP systolic 80–130; BP diastolic 44–80; PULSE 53–71; RESP 12–22; TEMP 36.1–36.8; O2SAT 91–100
--- NOTE | 2023-12-19 | PATH_ITS ---
[facility] Accession Number: [id number] No. of containers..01 Tissue . 01 Material submitted: . duodenum - DUODENUM POLYP . 01 Diagnosis: DUODENUM POLYP: Duodenal mucosa with no diagnostic alterations, including no definite polyp., No dysplasia or malignancy identified. No active inflammation and no evidence of celiac disease. See comment. . Specimen Comments: Multiple levels are examined, and no definite polyp is identified. Correlation with the clinical endoscopic appearance is recommended to rule out the possibility of an unsampled lesion. [facility] 12/25/2023 1510 Local . 01 Electronically signed: . Theodore Treviño MD, Pathologist NPI- [id number] . 01 Gross description: . DUODENUM POLYP: Received in formalin are 3 fragment(s) of ramos, soft tissue measuring 0.1 x 0.1 x 0.1 cm to 0.3 x 0.2 x 0.2 cm submitted entirely in 1 cassette(s) /DANILO 12/25/2023 1510 Local . 01 Pathologist provided ICD-10: K31.89 . 01 CPT . 515549 Specimen Comment: A courtesy copy of this report has been sent to [phone] Performed at: 01 [facility] [address] [address] [place] [address] [address] [facility], [place], [place] [id number] MD Theodore Treviño MD Phone: [phone]
--- NOTE | 2023-12-19 11:42 | PM.HP.1 ---
History of Present Illness History of Present Illness Date Patient Seen: 12/19/23 Chief complaint: SDC Narrative: Iron deficiency anemia and possible rectal prolapse [facility] Medical History Osteoarthritis (arthritis due to wear and tear of joints) Family History (Updated 06/22/21 @ 02:22 by JEREMY Song) Mother Dementia Father Diabetes mellitus Sister Breast cancer Other Hypertension Social History household members: spouse and family Smoking Status: Current some day smoker alcohol intake: current Meds Home Medications and Allergies Home Medications Medication Instructions Recorded Confirmed Type duloxetine 60 mg capsule,delayed 60 mg PO DAILY 06/21/21 06/21/21 History release (Cymbalta) Allergies Allergy/AdvReac Type Severity Reaction Status Date / Time No Known Drug Allergies Allergy Verified 12/19/23 11:38 Exam Narrative Exam Narrative: Oropharynx free of lesions Chest clear to auscultation percussion Cardiac exam reveals no S3 or murmur Assessment & Plan Assessment & Plan narrative: Iron deficiency anemia and possible rectal prolapse. Need for colonoscopy and EGD. Risks, benefits, alternatives have been explained.
--- NOTE | 2023-12-19 11:44 | PM.OP.EC ---
Operative Date/Time/Diagnoses Date of procedure: 12/19/23 Pre-op diagnosis: See indication and findings Procedure & Clinicians Study performed: EGD and colonoscopy Indications: Iron deficiency anemia and possible rectal prolapse Surgeon: Antonia Raines Procedure Notes Procedure in detail: After informed consent was obtained the patient was placed in left lateral decubitus position. The video upper scope was placed into the oropharynx and with the patient's help swallowed into the esophagus. The esophagus stomach and duodenum were carefully examined. On withdrawal, retroflexed view the GE junction was performed. The scope was removed. The patient tolerated procedure well. Blood loss none Complications none Sedation mac Findings EGD 1. Normal esophagus with normal squamocolumnar junction 2. Normal stomach with no evidence of inflammation or hematin flecks in the stomach 3. Normal duodenal bulb and sweep with the exception of 1 small erythematous streak. Biopsies taken to rule out celiac Colonoscopy 1. Normal colonoscopy to cecum Patient should follow-up with Dr. Castro for further evaluation. We will be in touch regarding the biopsies.
[2023-12-19] MEDS: LACTATED RINGERS 1,000 ML 42 ML IV (11:47)
== END 2023-12-19 13:29 | disposition home or self-care (01) ==
PROVIDERS: PCP Internal Medicine; Referring Provider Internal Medicine Gastroenterology; Visit Provider Internal Medicine Gastroenterology
PROC: 0DJ08ZZ Inspection of Upper Intestinal Tract, Via Natural or Artificial Opening Endoscopic (ICD-10-PCS; CPT 43235; principal; 2023-12-19 12:30)
PROC: 0DJD8ZZ Inspection of Lower Intestinal Tract, Via Natural or Artificial Opening Endoscopic (ICD-10-PCS; CPT 45378; 2023-12-19 12:30)
DX: D50.0 Iron deficiency anemia secondary to blood loss (chronic) (principal)
CPT/HCPCS: 45378; 43239; J2704